=== PATIENT | female | born 1940 | race Hispanic/Latino ===

== ENCOUNTER 2016-12-23 15:49 | Observation (INO) | payer BC ==
[2016-12-23 15:55] VITALS: BMI 33.0
[2016-12-23] MEDS ORDERED: Aspirin 325 mg EC Tablets PO STA (16:13)
--- NOTE | 2016-12-23 16:18 | ED PDOC ---
Arrival/HPI - General Chief Complaint: Palpitations Time Seen by Provider: 12/23/16 16:13 Historian: Patient - History of Present Illness Time/Duration: Prior to Arrival Symptom Onset: Sudden Associated Symptoms (Text): 12/23/16 16:15 Patient reports that she went to see for routine follow-up. While she was there she complained of intermittent palpitations. He did an EKG and found her to be in new onset rapid atrial fibrillation and directed her to the emergency department. She denies any chest pain. No dyspnea. No dizziness or lightheadedness. No diaphoresis. No fever or chills. Patient also complains of chronic right sided lower abdominal pelvic and hip pain for over one year. She has had MRI of the abdomen and MRI of the pelvis and MRI of the hip which are unrevealing. She complains that last week she felt something protruding from her vagina. On exam she has an easily reduced prolapsed uterus. Past Medical History - Infectious Disease Hx of Infectious Diseases: None - Reproductive Menopause: Yes - Cardiac Hx Pacemaker: No - Pulmonary Hx Asthma: Yes - Neurological Hx Paralysis: No - HEENT Hx HEENT Disorder: Yes Hx Cataracts: Yes - Renal Hx Renal Disorder: No - Endocrine/Metabolic Hx Endocrine Disorders: No - Hematological/Oncological Hx Blood Transfusions: No Hx Blood Transfusion Reaction: No - Integumentary Hx Dermatological Disorder: Yes Hx Cellulitis: Yes - Musculoskeletal/Rheumatological Hx Musculoskeletal Disorders: Yes - Gastrointestinal Hx Gastrointestinal Disorders: No - Genitourinary/Gynecological Hx Genitourinary Disorders: No - Psychiatric Hx Emotional Abuse: No Hx Physical Abuse: No Hx Substance Use: No - Surgical History Hx Cardiac Catheterization: Yes (stent) - Anesthesia Hx Anesthesia Reactions: No Hx Malignant Hyperthermia: No - Suicidal Assessment Feels Threatened In Home Enviroment: No Family/Social History - Physician Review Nursing Documentation Reviewed: Yes Family/Social History: Unknown Family HX Smoking Status: Former Smoker (Quit smoking 25 years ago) Hx Alcohol Use: No Hx Substance Use: No Allergies/Home Meds Allergies/Adverse Reactions: Allergies No Known Allergies Allergy (Verified 12/25/14 12:23) Home Medications: Home Meds Medication Instructions Recorded Confirmed Albuterol HFA [Ventolin HFA 90 2 puff IH PRN PRN 12/25/14 12/23/16 mcg/actuation (8 g)] Amlodipine/Valsartan [Exforge 1 tab PO DAILY 12/25/14 12/23/16 5-320 mg Tablet] Budesonide/Formoterol Fumarate 1 aer IH BID 12/25/14 12/23/16 [Symbicort 160-4.5 Mcg Inhaler] Aspirin [Aspirin EC] 325 mg PO DAILY 01/29/16 12/23/16 Atorvastatin [Lipitor] 40 mg PO DAILY 01/29/16 12/23/16 Carvedilol [Coreg] 6.25 mg PO BID 01/29/16 12/23/16 Clopidogrel [Plavix] 75 mg PO DAILY 01/29/16 12/23/16 Isosorbide Mononitrate ER [Imdur 30 mg PO DAILY 01/29/16 12/23/16 ER] Review of Systems - Physician Review All systems were reviewed & negative as marked: Yes - Review of Systems Constitutional: Normal Respiratory: SOB (Chronic shortness of breath no different from usual) Cardiovascular: Normal Gastrointestinal: Normal, Abdominal Pain. absent: Constipation, Diarrhea, Nausea, Vomiting Genitourinary Female: absent: Dysuria, Frequency, Hematuria, Vaginal Bleeding, Vaginal Discharge Neurological: absent: Headache, Dizziness Physical Exam Vital Signs Temp Pulse Resp BP Pulse Ox 12/23/16 17:14 80 20 114/54 L 94 L 12/23/16 16:07 97.7 F 83 16 132/70 94 L Temperature: Afebrile Blood Pressure: Normal Pulse: Regular Respiratory Rate: Normal Appearance: Positive for: Well-Appearing, Non-Toxic, Comfortable Pain Distress: None Mental Status: Positive for: Alert and Oriented X 3 - Systems Exam Head: Present: Atraumatic, Normocephalic Pupils: Present: PERRL Extroacular Muscles: Present: EOMI Conjunctiva: Present: Normal Mouth: Present: Moist Mucous Membranes Pharnyx: No: ERYTHEMA, EXUDATE, TONSILS ENLARGED Neck: Present: Normal Range of Motion. No: MIDLINE TENDERNESS, Paraspinal Tenderness Respiratory/Chest: Present: Clear to Auscultation, Good Air Exchange, Decreased Breath Sounds. No: Respiratory Distress, Accessory Muscle Use Cardiovascular: Present: Regular Rate and Rhythm, Normal S1, S2. No: Murmurs Abdomen: Present: Normal Bowel Sounds. No: Tenderness, Distention, Peritoneal Signs, Rebound, Guarding Genitourinary/Pelvic Exam: Present: Normal External Genitalia, Other (Easily reduced prolapsed uterus). No: Vaginal Discharge, Vaginal Bleeding, Vaginal Lesions Back: Present: Normal Inspection. No: CVA Tenderness, Midline Tenderness, Paraspinal Tenderness Upper Extremity: Present: Normal Inspection. No: Cyanosis, Edema Lower Extremity: Present: Normal Inspection. No: Edema Neurological: Present: GCS=15, CN II-XII Intact, Speech Normal, Motor Func Grossly Intact Skin: Present: Warm, Dry, Normal Color. No: Rashes Psychiatric: Present: Alert, Oriented x 3, Normal Insight, Normal Concentration Medical Decision Making ED Course and Treatment: 12/23/16 16:18 EKG shows normal sinus rhythm rate approximately [address] or T-wave changes 12/23/16 17:24 Discussed with Ozzy Pineda. - Lab Interpretations Lab Results: 12/23/16 16:15 12/23/16 16:15 Lab Results 12/23/16 16:15: Sodium 144, Potassium 4.0, Chloride 107, Carbon Dioxide 24, Anion Gap 17, BUN 21, Creatinine 0.8, Est GFR ( Amer) > 60, Est GFR (Non- Af Amer) > 60, Random Glucose 161 H, Calcium 9.0, Total Bilirubin 0.5, AST 39 H , ALT 37, Alkaline Phosphatase 147 H, Lactate Dehydrogenase 1119 H, Total Creatine Kinase 67, Troponin I < 0.01, NT-Pro-B Natriuret Pep 1040 H, Total Protein 7.4, Albumin 4.2, Globulin 3.2, Albumin/Globulin Ratio 1.3 12/23/16 16:15: PT 10.8, INR 1.00, APTT 28.7 12/23/16 16:15: WBC 7.5, RBC 4.57, Hgb 13.4, Hct 40.5, MCV 88.6, MCH 29.3, MCHC 33.1, RDW 14.0, Plt Count 261, MPV 10.8, Gran % 68.4 H, Lymph % (Auto) 24.8, [place] % (Auto) 5.2, Eos % (Auto) 1.3 L, Baso % (Auto) 0.3, Gran # 5.15, Lymph # 1.9, [place] # 0.4, Eos # 0.1, Baso # 0.02 - RAD Interpretation Radiology Orders: 12/23/16 16:14 CHEST PORTABLE [RAD] Stat Chest 1 view shows no infiltrate effusion or cardiomegaly Enterprise Manager: ED Physician - Medication Orders Current Medication Orders: Amlodipine Besylate (Norvasc) 10 mg PO DAILY THUY Aspirin (Ecotrin) 325 mg PO DAILY THUY Atorvastatin Calcium (Lipitor) 40 mg PO DAILY THUY Carvedilol (Coreg) 6.25 mg PO BID THUY Clopidogrel Bisulfate (Plavix) 75 mg PO DAILY THUY Isosorbide Mononitrate (Imdur Er) 30 mg PO HS THUY Non-Formulary Medication (Budesonide/Formoterol Fumarate [Symbicort 160-4.5 Mcg Inhaler]) 1 aer IH BID THUY Discontinued Medications Aspirin (Ecotrin) 325 mg PO STAT STA Stop: 12/23/16 16:14 Last Admin: 12/23/16 16:25 Dose: 325 mg Disposition/Present on Arrival - Present on Arrival Any Indicators Present on Arrival: No History of DVT/PE: No History of Uncontrolled Diabetes: No Urinary Catheter: No History of Decub. Ulcer: No History Surgical Site Infection Following: None - Disposition Have Diagnosis and Disposition been Completed?: Yes Diagnosis: Paroxysmal atrial fibrillation, Prolapsed uterus, Elevated brain natriuretic peptide (BNP) level, Hyperglycemia Disposition: HOME/ ROUTINE Disposition Time: 17:05 Patient Plan: Observation, Telemetry Patient Problems: Current Active Problems Problem Status Onset Elevated brain natriuretic peptide (BNP) level Acute Hyperglycemia Acute Paroxysmal atrial fibrillation Acute Prolapsed uterus Acute Condition: STABLE
[2016-12-23 16:32] LABS: BASO # 0.02 K/mm3 (0.0-2.0); BASO % 0.3 % (0.0-3.0); EOS # 0.1 (0.0-0.7); EOS % 1.3 % (1.5-5.0); GRAN # 5.15 (1.4-6.5); GRAN % 68.4 % (50.0-68.0); HEMATOCRIT 40.5 % (36.0-48.0); LYMPH # 1.9 (1.2-3.4); LYMPH % 24.8 % (22.0-35.0); MEAN CELL VOLUME 88.6 fl (80.0-105.0); MEAN CORPUSCULAR HEMOGLOBIN 29.3 pg (25.0-35.0); MEAN CORPUSCULAR HGB CONC 33.1 g/dl (31.0-37.0); MEAN PLATELET VOLUME 10.8 fl (7.0-11.0); MONO # 0.4 (0.1-0.6); MONO % 5.2 % (1.0-6.0); WHITE BLOOD COUNT 7.5 10^3/ul (4.5-11.0)
[2016-12-23 16:38] LABS: ALB/GLOB RATIO 1.3 (1.1-1.8); ALKALINE PHOSPHATASE 147 U/L (38-126); ALT/SGPT 37 U/L (7-56); AST/SGOT 39 U/L (14-36); BILIRUBIN,TOTAL 0.5 mg/dL (0.2-1.3); BLOOD UREA NITROGEN 21 mg/dL (7-21); CARBON DIOXIDE 24 mmol/L (21-33); CHLORIDE 107 mmol/L (98-107); GFR AFRICAN-AMERICAN > 60; GLUCOSE,RANDOM 161 mg/dL (70-110); SODIUM 144 mmol/L (132-148); TOTAL PROTEIN 7.4 g/dL (5.8-8.3)
[2016-12-23 16:45] LABS: PARTIAL THROMBOPLASTIN TIME 28.7 Seconds (23.7-30.8)
[2016-12-23 16:50] LABS: TROPONIN I < 0.01 ng/mL
--- NOTE | 2016-12-23 17:00 | RAD ---
HISTORY: palp COMPARISON: 12/25/2014 FINDINGS: LUNGS: No active pulmonary disease. PLEURA: No significant pleural effusion identified, no pneumothorax apparent. CARDIOVASCULAR: Normal. OSSEOUS STRUCTURES: No significant abnormalities. VISUALIZED UPPER ABDOMEN: Normal. OTHER FINDINGS: None. IMPRESSION: No active disease.
[2016-12-23] MEDS ORDERED: Non Formulary Medication (Budesonide/Formoterol Fumarate [Symbicort 160-4.5 Mcg Inhaler] 1 IH SCH (18:00)
[2016-12-23] MEDS ORDERED: Pneumococcal 23-Valent Vaccine IM ONE (23:22)
[2016-12-24 06:16] VITALS: RESP 20; O2SAT 95
[2016-12-24] MEDS ORDERED: Aspirin 325 mg EC Tablets PO SCH (10:00)
[2016-12-24] MEDS ORDERED: Home Med - SYMBICORT 160/4.5 MCG IH SCH (10:00)
--- NOTE | 2016-12-24 11:42 | CARD ---
APPROVED REPORT EKG Measurement Heart [id number] <Conclusion> Normal sinus rhythm Possible Left atrial enlargement Left ventricular hypertrophy Abnormal ECG
[2016-12-24 11:45] VITALS: BP 133/63; TEMP 98.1
--- NOTE | 2016-12-24 13:43 | CP.PCM.CON ---
History of Present Illness - History of Present Illness History of Present Illness: .72-year-old female admitted to hospital due to atrial fibrillation. Upon admission, incidental finding of pelvic organ prolapse. Patient reports noticing this in the past. Patient reports having occasional pelvic pressure and discomfort, but otherwise without complaints. Patient denies any incontinence, urinary retention, vaginal discharge, vaginal bleeding, difficulty with bowel movements, diarrhea or constipation. Past Patient History - Infectious Disease Hx of Infectious Diseases: None - Past Social History Smoking Status: Former Smoker - CARDIAC Hx Cardiac Disorders: Yes (CAD) Hx Cardia Arrhythmia: Yes (NEW ONSET RAPID AFIB 12-23-16) Hx Pacemaker: No - PULMONARY Hx Respiratory Disorders: Yes (SMOKED CIGARETTES) Hx Asthma: Yes Hx Chronic Obstructive Pulmonary Disease (COPD): Yes Hx Pneumonia: Yes - NEUROLOGICAL Hx Neurological Disorder: Yes Hx Transient Ischemic Attacks (TIA): Yes Other/Comment: bells palsy - HEENT Hx HEENT Problems: Yes Hx Cataracts: Yes (WITH SX) - RENAL Hx Chronic Kidney Disease: No - ENDOCRINE/METABOLIC Hx Endocrine Disorders: No - HEMATOLOGICAL/ONCOLOGICAL Hx Blood Disorders: No - INTEGUMENTARY Hx Dermatological Problems: Yes - MUSCULOSKELETAL/RHEUMATOLOGICAL Hx Musculoskeletal Disorders: Yes (PLANTAR FASCITIS) Hx Falls: No - GASTROINTESTINAL Hx Gastrointestinal Disorders: Yes Hx Gall Bladder Disease: Yes (CHOLECYSTECTOMY) - GENITOURINARY/GYNECOLOGICAL Hx Genitourinary Disorders: Yes (PROLAPSED UTERUS 12-23-16) - PSYCHIATRIC Hx Psychophysiologic Disorder: No Hx Emotional Abuse: No Hx Physical Abuse: No Hx Substance Use: No - SURGICAL HISTORY Hx Surgeries: Yes (L LUMPECTOMY,HEART STENTS X 2,BILATERAL CATARACT SURGERY) Hx Cardiac Catheterization: Yes (stentX2) Hx Cholecystectomy: Yes - ANESTHESIA Hx Anesthesia Reactions: No Hx Malignant Hyperthermia: No Meds Allergies/Adverse Reactions: Allergies Allergy/AdvReac Type Severity Reaction Status Date / Time No Known Allergies Allergy Verified 12/23/16 20:50 - Medications Medications: Current Medications Acetaminophen (Tylenol 325mg Tab) 650 mg PO Q6 PRN PRN Reason: Pain, moderate (4-7) Last Admin: 12/24/16 01:04 Dose: 650 mg Amlodipine Besylate (Norvasc) 10 mg PO DAILY [facility] Last Admin: 12/24/16 09:57 Dose: 10 mg Aspirin (Ecotrin) 325 mg PO DAILY [facility] Last Admin: 12/24/16 09:57 Dose: 325 mg Atorvastatin Calcium (Lipitor) 40 mg PO DAILY [facility] Last Admin: 12/24/16 09:57 Dose: 40 mg Clopidogrel Bisulfate (Plavix) 75 mg PO DAILY [facility] Last Admin: 12/24/16 09:57 Dose: 75 mg Home Med (Home Med) 2 unit IH BID [facility] Last Admin: 12/24/16 09:57 Dose: 2 unit Isosorbide Mononitrate (Imdur Er) 30 mg PO HS [facility] Last Admin: 12/23/16 21:27 Dose: 30 mg Physical Exam - Constitutional Appears: Well, No Acute Distress - Head Exam Head Exam: ATRAUMATIC - Eye Exam Eye Exam: Normal appearance, PERRL - ENT Exam ENT Exam: Mucous Membranes Moist - Neck Exam Neck exam: Positive for: Normal Inspection - GI/Abdominal Exam GI & Abdominal Exam: Soft. absent: Distended, Tenderness - Exam Additional comments: Patient declined full pelvic exam today. Patient requests to have full pelvic exam and evaluation when she sees me in my office in 2 days. Results - Vital Signs Recent Vital Signs: Last Vital Signs Temp 98.1 F 12/24/16 11:44 Pulse 70 12/24/16 11:44 Resp 20 12/24/16 11:44 BP 133/63 12/24/16 11:44 Pulse Ox 95 12/24/16 06:00 - Labs Result Diagrams: 12/23/16 16:15 12/23/16 16:15 Assessment & Plan - Assessment and Plan (Free Text) Assessment: Pelvic organ prolapse. Plan: I discussed with patient information regarding pelvic organ prolapse. I discussed with patient possible symptoms as well as possible sequelae. I discussed with patient all options of treatment including expectant management, management with pessary, and definitive management with surgery. After discussion of options, patient is leaning towards surgery but will consider options. Patient is having pelvic ultrasound done today and is scheduled for discharge from hospital today. I gave patient my contact information, and patient will follow-up with me in the office in 2 days. All patient questions answered. - Date & Time Date: 12/24/16 Time: 13:48
[2016-12-24 14:46] VITALS: PULSE 77
--- NOTE | 2016-12-24 16:49 | US ---
HISTORY: pelvic pain, r/o prolapse uterus COMPARISON: None available. TECHNIQUE: Pelvic ultrasound is performed using transabdominal and transvaginal technique. FINDINGS: UTERUS: Measures 8.2 x 3.0 x 4.5 cm. Uterus is anteverted. Normal in size and appearance. No fibroid or other mass lesion seen, however, peripheral vascular calcifications are identified in the myometrium. . ENDOMETRIUM: Measures 5.0 mm in diameter. Unremarkable. CERVIX: No cervical abnormality identified. RIGHT OVARY: Measures 2.2 x 1.3 x 1.8 cm. No solid mass. Normal flow. LEFT OVARY: Measures 2.3 x 2.0 x 1.1 cm. No solid mass. Normal flow. FREE FLUID: No significant free fluid noted. OTHER FINDINGS: None. IMPRESSION: Unremarkable pelvic ultrasound.
--- NOTE | 2016-12-24 19:52 | CON ---
DATE: 12/24/2016 LOCATION: The patient is in room 262, bed 1. REASON FOR CONSULTATION: Palpitation, new onset of atrial fibrillation, coronary artery disease, history of angioplasty, hypertension, and pelvic pain. HISTORY OF PRESENT ILLNESS: The patient is a 76-year-old female known case of coronary artery disease, had RCA stent put in on 01/04/2015, then she had abnormal stress test on 01/10/2016 for which she had gaps and had LAD stent put in on 01/31/2016. The patient complained of palpitation and the EKG done in the office showed new onset of atrial fibrillation. The patient also complaining from last few days pelvic area pain and she thinks from vagina, there is protrusion outside and she has lot of pain in the inguinal and pelvic area. The patient denies any chest pain or shortness of breath. The patient is known to have hypertension and COPD. PAST MEDICAL HISTORY: Positive for coronary artery disease, status post RCA stent on 01/04/2015, abnormal stress test 01/10/2016. 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 PERSONAL HISTORY: The patient used to smoke [id number] pack a day, but stopped 25 years ago. Denies drinking. ALLERGIES: THE PATIENT DENIES ANY ALLERGIES. MEDICATIONS: The patient's home medication included aspirin 325 daily, Lipitor 40 daily, Coreg 6.25 b.i.d., Plavix 75 mg p.o. daily, isosorbide mononitrate 30 p.o. daily, Ventolin inhaler, and Exforge 5/320 mg daily. REVIEW OF SYSTEMS: All the systems are reviewed. Positive mentioned in the history, others are negative. PHYSICAL EXAMINATION: VITAL SIGNS: Blood pressure 133/63, respiratory rate 20, pulse 70, and temperature is 98.1. HEENT: Head is normocephalic. Eyes: Pupils are normal. Conjunctivae normal. Nose and throat normal. NECK: JVP low. Carotids are equal. THORAX: AP diameter normal. LUNGS: Clear. CARDIOVASCULAR: S1 and S2. ABDOMEN: Soft. No tenderness in the pelvic area and suprapubic area. EXTREMITIES: No clubbing. No cyanosis. LABORATORY DATA: EKG yesterday in the office showed atrial fibrillation, new onset. The patient went to the emergency room and EKG done here showed sinus rhythm. Chest x-ray, no active pulmonary disease. WBC 7.5, hemoglobin 13.4, hematocrit 40.5, and platelet 261. Sodium 144, potassium 4.0, BUN 21, creatinine 0.8, random glucose 161, AST 39, ALT 37. Troponin less than 0.01, LDH 1119, NT pro-B natriuretic peptide 1040. DIAGNOSES: New onset atrial fibrillation, which converted to sinus rhythm; coronary artery disease status post angioplasty of right coronary artery on 01/04/2015 and angioplasty and stent insertion of left anterior descending 01/31/2016; hypertension; hyperlipidemia; obesity; chronic obstructive pulmonary disease; prolapsed uterus, which was reduced in emergency room; pelvic area and inguinal area pain, probably related to prolapse of the uterus. PLAN: The patient is getting carvedilol 6.25 b.i.d., aspirin 325 daily, atorvastatin 40 daily, isosorbide mononitrate 30 daily, amlodipine 10 daily, Plavix 75 daily. Since the patient went into atrial fibrillation while was on carvedilol 6.25 b.i.d., we will increase the carvedilol dose to 12.5 b.i.d. and we will follow closely. Anuel Preciado MD
--- NOTE | 2016-12-25 01:19 | HP ---
HISTORY OF PRESENT ILLNESS: This is a 76-year-old female who was sent by Dr. Preciado's office because of atrial fibrillation, new onset. The patient was found to have EKG that showed atrial fibrillation which was new. She also has been complaining of a prolapsed uterus. She is waiting to see her LEAD INSTRUCTOR/FLIGHT ATTENDANT. The patient was sent to the ER and was found to be in sinus rhythm. She was admitted as an observation to see if she has any arrhythmias. She was not started on any medication for her rate control and her rate was tachy-sinus rhythm. She has a history of having arthritic complaints. She does continue to work. The patient has no complaints of any chest pain, no shortness of breath, no nausea, no vomiting, no hematochezia, no headache or chills. She does have dysuria at times. No fevers. No abdominal pain. She does feel fullness in her pelvic area. REVIEW OF SYSTEMS: All other review of symptoms are within normal limits except as mentioned. ALLERGIES: NO KNOWN DRUG ALLERGIES. HOME MEDICATIONS: Her home medications have been reviewed. PAST MEDICAL HISTORY: 1. Coronary artery disease with stenting of RCA in 12/2014. 2. COPD. 3. Hypertension. PAST SURGICAL HISTORY: 1. Cholecystectomy. 2. Lumpectomy secondary to carcinoma in situ of breast. SOCIAL HISTORY: She smoked 1-1/2-pack a day, but quit about 25 years ago. She denies alcohol or drugs. FAMILY HISTORY: Noncontributory. PHYSICAL EXAMINATION: VITAL SIGNS: Temperature is 98, pulse of 76, blood pressure 144/62, respirations 18, O2 saturation 96%. Height is 5 feet 7 inches, weight is 206 pounds, BMI is 33. GENERAL: The patient lying in bed, uncomfortable, and in no acute distress. HEENT: Atraumatic and normocephalic. Anicteric sclerae. Moist mucosa. Rainbow conjunctivae. No oral lesions. NECK: No JVD, anterior and posterior adenopathy, thyromegaly, or bruits. CARDIOVASCULAR: S1 and S2 regular. No murmur, rubs, or gallop. LUNGS: Clear to auscultation bilaterally. No wheezes, rales, or rhonchi. ABDOMEN: Bowel sounds are positive. Soft, nontender and nondistended. No hepatosplenomegaly. No rebound and no guarding. EXTREMITIES: No cyanosis, clubbing, or edema. NEUROLOGIC: No facial asymmetry. Tongue is midline. No uvula deviation. Power is 5/5 upper extremity and lower extremity. Sensation intact in upper extremity and lower extremity. PSYCHIATRIC: She is awake, alert and oriented x3. No anxiety or depression. She has normal affect. GENITOURINARY: No CVA tenderness. VASCULAR: 2+ pulses in the carotid pulses and pedal pulses. SKIN: No erythema or nodules SPINE: Shows normal curvature. EXTREMITIES: No Cyanosis and clubbing, no edema. LABORATORY DATA: White count 7.5, hemiglobin 13.4. Sodium is 144, potassium 4.0. AST and ALT are 39 and 37. Troponin is 0.01. ProBNP is 140. The pelvic and vaginal ultrasound have been reviewed by me and they were negative. Chest x-ray done shows no infiltrates. EKG done shows normal sinus rhythm with LVH. QTc is 458. ASSESSMENT: 1. Atrial fibrillation, now in sinus rhythm. 2. Hypertension. 3. Coronary artery disease. 4. Dyslipidemia. 5. Chronic obstructive pulmonary disease. 6. Uterine prolapse. PLAN: The patient was admitted to the hospital, remained in sinus rhythm throughout the night. She was seen by Dr. Preciado. I did speak to Dr. Austin regarding the case. She also is seen by LEAD INSTRUCTOR/FLIGHT ATTENDANT, and she is going to follow up as an outpatient for her uterine prolapse. The patient is going to continue Lipitor for dyslipidemia. She is going to continue her aspirin for coronary disease. She is on isosorbide and carvedilol for her coronary disease as well. She is on Plavix daily for her coronary artery disease. Her blood pressure has been maintained on her blood pressure medications. She is going to be discharged home. CONDITION: Stable. ACTIVITIES: Increase as tolerated. Kurt Nevarez MD
== END 2016-12-24 17:21 | disposition home or self-care (01) ==
LOC: ED 15:49 → ERH 17:07 → 2RNO 22:22
PROVIDERS: ADMIT Internal Medicine Nephrology; ATTEND Internal Medicine Nephrology
DX: I48.0 Paroxysmal atrial fibrillation (principal); N81.4 Uterovaginal prolapse, unspecified; R73.9 Hyperglycemia, unspecified; E78.5 Hyperlipidemia, unspecified; I10 Essential (primary) hypertension; I25.10 Atherosclerotic heart disease of native coronary artery without angina pectoris; J44.9 Chronic obstructive pulmonary disease, unspecified; Z79.02 Long term (current) use of antithrombotics/antiplatelets; Z79.51 Long term (current) use of inhaled steroids; Z79.82 Long term (current) use of aspirin; Z79.899 Other long term (current) drug therapy; Z85.3 Personal history of malignant neoplasm of breast; Z86.73 Personal history of transient ischemic attack (TIA), and cerebral infarction without residual deficits; Z87.01 Personal history of pneumonia (recurrent); Z87.891 Personal history of nicotine dependence; Z90.49 Acquired absence of other specified parts of digestive tract; Z95.5 Presence of coronary angioplasty implant and graft; R40.2412 Glasgow coma scale score 13-15, at arrival to emergency department; R30.0 Dysuria; G51.0 Bell's palsy; M72.2 Plantar fascial fibromatosis; Z98.42 Cataract extraction status, left eye; Z98.41 Cataract extraction status, right eye; E66.9 Obesity, unspecified; Z68.32 Body mass index [BMI] 32.0-32.9, adult
CPT/HCPCS: 71010; 76830; 76856; 80053; 82550; 83615; 83880; 84484; 85025; 85610; 85730; 93005; 99284; G0378

== ENCOUNTER 2018-02-04 09:25 | Day surgery (SDC) | payer MEDICARE ==
[2018-01-27 09:09] VITALS: BMI 31.9
[2018-02-04] MEDS ORDERED: Midazolam 2 MG/2 ML VIAL ONE (11:54)
[2018-02-04] MEDS ORDERED: Flumazenil 0.1 mg/ml Inj (5ml) IVP ONE (11:55)
[2018-02-04] MEDS ORDERED: Naloxone 0.4 mg/ml Inj (Adult) ONE (11:55)
[2018-02-04] MEDS ORDERED: Midazolam 2 MG/2 ML VIAL IV ONE ×3 (11:58→12:10)
[2018-02-04] MEDS ORDERED: Sodium Chloride 0.9% 1,000 ML IV SCH (12:45)
[2018-02-04 15:32] VITALS: BP 126/53; PULSE 70; RESP 18; TEMP 97.4; O2SAT 95
--- NOTE | 2018-02-04 18:45 | CARD ---
APPROVED REPORT Date of service: 02/04/2018 EXAM: Transesophageal echocardiogram with color flow Doppler. INDICATION Mitral Valve Disease 2D DIMENSIONS Left Atrium (2D)6.0 (1.6-4.0cm) M-Mode DIMENSIONS Aortic Cusp Exc.1.30 (1.5-2.0cm) Aortic Valve AoV Peak Pfwduhhb979.0cm/Jeremy Peak GR.15mmHgLVOT Peak Dtfmspad05.3cm/s LVOT VTI16.40cm Mitral Valve E/A ratio0.0 TDI E/Lateral E'0.0E/Medial E'0.0 Reason For Test : To Eval MR/ PROCEDURE After obtaining informed consent, patient underwent transesophageal echo in the Echo Lab. Type of Sedation : Conscious Sedation Sedation was administered by Dr. juan. Sedation was achieved with Versed and fentanyl 3mg and 100 mcg intravenously. Transesophageal probe was inserted and advanced into esophagus without difficulty. Echo enhancement indication: R/O Septal defect. Echo enhancement agent administered: Agitated Saline The RUFINO was performed without complications. Throughout the procedure, the blood pressure, pulse oximetry, cardiac rhythm, and rate were monitored. The patient tolerated the procedure without adverse effects. Recovery from conscious sedation was uneventful and vital signs were stable. LEFT VENTRICLE The left ventricle is normal size. There is mild concentric left ventricular hypertrophy. The left ventricular function is normal.EF-55-60% There is normal LV segmental wall motion. The left ventricular diastolic function is normal. No left ventricle thrombus noted on this study. There is no ventricular septal defect visualized. There is no left ventricular aneurysm. There is no mass noted in the left ventricle. RIGHT VENTRICLE The right ventricle is normal size. There is normal right ventricular wall thickness. The right ventricular systolic function is normal. ATRIA The left atrium is Moderately dilated. The right atrium size is normal. The interatrial septum is intact with no evidence for an atrial septal defect. AORTIC VALVE The aortic valve is calcified and displays decreased opening. There is trace to mild aortic regurgitation. There is moderate valvular aortic stenosis. There is no aortic valvular vegetation. MITRAL VALVE The mitral valve leaflets are thickened. There is prolapse of the anterior mitral leaflet. There is no mitral valve stenosis. The mitral regurgitant jet is posteriorly directed, which is consistent with anterior leaflet pathology. Mitral regurgitation is severe. TRICUSPID VALVE The tricuspid valve leaflets display thickening. There is trace tricuspid regurgitation. There is no tricuspid valve prolapse or vegetation. There is no tricuspid valve stenosis. PULMONIC VALVE The pulmonary valve is normal in structure. There is trace pulmonic valvular regurgitation. There is no pulmonic valvular stenosis. GREAT VESSELS The aortic root is normal in size. The ascending aorta is normal in size. The pulmonary artery is normal. The IVC is normal in size and collapses >50% with inspiration. PERICARDIAL EFFUSION There is no pericardial effusion. There is no pleural effusion. <Conclusion> The left ventricle is normal size. There is mild concentric left ventricular hypertrophy. The left ventricular function is normal.EF-55-60% There is trace to mild aortic regurgitation. There is moderate valvular aortic stenosis. There is prolapse of the anterior mitral leaflet. The mitral regurgitant jet is posteriorly directed, which is consistent with anterior leaflet pathology. Mitral regurgitation is severe. There is trace tricuspid regurgitation. There is trace pulmonic valvular regurgitation. Moderate Plaque in descending aorta Veloctiy in PHILL >0.4 m/s
== END 2018-02-04 14:30 | disposition home or self-care (01) ==
LOC: TEE 09:25 → CARDIO 09:25 → EDSTATUS 11:00 → TEE 14:30
PROVIDERS: ATTEND Internal Medicine Cardiovascular Disease
DX: I34.0 Nonrheumatic mitral (valve) insufficiency (principal); I10 Essential (primary) hypertension; I25.10 Atherosclerotic heart disease of native coronary artery without angina pectoris
CPT/HCPCS: 93312; J2250; J3010; J7030

== ENCOUNTER 2018-03-19 17:37 | Inpatient (IN) | payer MEDICARE ==
[2018-03-19 17:50] VITALS: BMI 32.9
--- NOTE | 2018-03-19 17:52 | ED PDOC ---
Arrival/HPI - General Time Seen by Provider: 03/19/18 17:42 Historian: Patient, Family (daughter) - History of Present Illness Narrative History of Present Illness (Text): A 77 year old female, whose past medical history includes emphysema, hypertension, hyperlipidemia, COPD, Asthma, 2 stents, breast cancer, mitral valve surgery, and a hysterectomy, presents to the emergency department complaining of shortness of breath since earlier today. SOB x1 week however total. Patient reports pain feels similar to chronic pain from hysterectomy. Patient states she has taken a breathing treatment prior to arrival to the ER and she has not taken any emphysema medication due to insurance issues. Patient denies any fever, chills, chest pain, diarrhea, nausea, vomiting, urinary symptoms, back pain, neck pain, headache, dizziness, or any other complaints. PMD: Dr. Melendez 03/19/18 20:14 Time/Duration: Other (earlier today) Symptom Onset: Gradual Symptom Course: Unchanged Activities at Onset: Light Context: Home Past Medical History - Provider Review Nursing Documentation Reviewed: Yes - Infectious Disease Hx of Infectious Diseases: None - Cardiac Hx Pacemaker: No - Pulmonary Hx Respiratory Disorders: Yes Hx Asthma: Yes Hx Bronchitis: Yes Hx Chronic Obstructive Pulmonary Disease (COPD): Yes Hx Pneumonia: Yes - Neurological Hx Paralysis: No - HEENT Hx HEENT Disorder: Yes Hx Cataracts: Yes - Renal Hx Renal Disorder: No - Endocrine/Metabolic Hx Endocrine Disorders: No - Hematological/Oncological Hx Blood Transfusions: No Hx Blood Transfusion Reaction: No - Integumentary Hx Dermatological Disorder: No Hx Cellulitis: Yes - Musculoskeletal/Rheumatological Hx Musculoskeletal Disorders: Yes - Gastrointestinal Hx Gastrointestinal Disorders: No Hx Gall Bladder Disease: Yes (CHOLECYSTECTOMY) - Genitourinary/Gynecological Hx Genitourinary Disorders: No - Psychiatric Hx Emotional Abuse: No Hx Physical Abuse: No Hx Substance Use: No - Surgical History Hx Angioplasty: Yes Hx Cataract Extraction: Yes (O.U) Hx Cardiac Catheterization: Yes Hx Cholecystectomy: Yes Hx Coronary Stent: Yes Other/Comment: LUMPECTOMY LEFT BREAST - Anesthesia Hx Anesthesia Reactions: No Hx Malignant Hyperthermia: No - Suicidal Assessment Feels Threatened In Home Enviroment: No Family/Social History - Physician Review Nursing Documentation Reviewed: Yes Family/Social History: No Known Family HX Smoking Status: Former Smoker Hx Alcohol Use: No Hx Substance Use: No Allergies/Home Meds Allergies/Adverse Reactions: Allergies No Known Allergies Allergy (Verified 12/23/16 20:50) Home Medications: Home Meds Medication Instructions Recorded Confirmed Albuterol HFA [Ventolin HFA 90 2 puff IH PRN PRN 12/25/14 02/04/18 mcg/actuation (8 g)] Aspirin [Aspirin EC] 325 mg PO DAILY 01/29/16 02/04/18 Atorvastatin [Lipitor] 40 mg PO DAILY 01/29/16 02/04/18 Carvedilol [Coreg] 6.25 mg PO BID 01/29/16 02/04/18 Clopidogrel [Plavix] 75 mg PO DAILY 01/29/16 02/04/18 Isosorbide Mononitrate ER [Imdur 30 mg PO DAILY 01/29/16 02/04/18 ER] Ezetimibe [Zetia] 10 mg PO DAILY 01/30/17 02/04/18 Fluticasone/Umeclidin/Vilanter 1 puff IH DAILY 01/27/18 02/04/18 [Trelegy Ellipta 100-62.5-25] Valsartan 320 mg PO DAILY 01/27/18 02/04/18 amLODIPine [Norvasc] 5 mg PO DAILY 01/27/18 02/04/18 Review of Systems - Physician Review All systems were reviewed & negative as marked: Yes - Review of Systems Constitutional: absent: Fatigue, Fevers, Night Sweats Eyes: absent: Vision Changes ENT: absent: Hearing Changes, Tinnitus Respiratory: SOB Cardiovascular: absent: Chest Pain, Palpitations Gastrointestinal: absent: Stool Changes, Constipation, Diarrhea, Nausea, Vomiting, Appetite Changes, Hematochezia, Hematemesis, Food Intolerance Genitourinary Female: absent: Dysuria, Frequency, Hematuria, Urine Output Changes, Vaginal Bleeding, Vaginal Discharge Musculoskeletal: absent: Arthralgias, Back Pain, Neck Pain Skin: absent: Rash, Pruritis Neurological: absent: Headache, Dizziness, Focal Weakness Physical Exam Vital Signs Reviewed: Yes Temperature: Afebrile Blood Pressure: Hypotensive Pulse: Tachycardic Respiratory Rate: Normal Appearance: Positive for: Well-Appearing, Non-Toxic Mental Status: Positive for: Alert and Oriented X 3 - Systems Exam Head: Present: Atraumatic, Normocephalic Pupils: Present: PERRL Extroacular Muscles: Present: EOMI Conjunctiva: Present: Normal Ears: Present: Normal Mouth: Present: Moist Mucous Membranes Pharnyx: Present: Normal. No: ERYTHEMA, EXUDATE Neck: Present: Normal Range of Motion. No: Meningeal Signs Respiratory/Chest: Present: Wheezes (+mild wheezing bilaterally at bases) Cardiovascular: Present: Regular Rate and Rhythm, Normal S1, S2. No: Murmurs Abdomen: Present: Normal Bowel Sounds. No: Tenderness, Distention, Peritoneal Signs Back: Present: Normal Inspection Upper Extremity: Present: Normal Inspection. No: Cyanosis, Edema Lower Extremity: Present: Normal Inspection. No: Edema Neurological: Present: GCS=15, CN II-XII Intact, Speech Normal Skin: Present: Warm, Dry, Normal Color. No: Rashes Psychiatric: Present: Alert, Oriented x 3, Normal Insight, Normal Concentration Medical Decision Making ED Course and Treatment: 03/19/18 17:54 Impression: 77 year old female presenting to the emergency room for shortness of breath. Shortness of x1 week, worsened, RIOS. No leg swelling however, but hx of breast CA rx in the past. No CP, but pt notes chronic abd pain after she had her hysterectomy. No vaginal d/c. No rashes. No urinary complaints. On exam abd non-ttp. Mild wheezes on exam. On plavix, however given recent TTE, for ?CHF vs Emphysema, Breast CA hx will seek dimer. Plan: -- EKG -- Labs -- CBC -- Chest X-ray -- Urinalysis -- Reassess and disposition Prior Visits: Notes and results from previous visits were reviewed. Progress Notes: 03/19/18 17:55 EKG: Ordered, reviewed, and independently interpreted the EKG. Rate : 108 BPM Rhythm : Sinus tachycardia Interpretation : No stemi. 03/19/18 20:04 dimer elevated - CT ordered BNP elevated - Lasix ordered febrile, w/ out meningeal signs or urinary complaints or vaginal d/c or rash. Tylenol ordered. Broad spectrum abx ordered pt agreeable to plan for admission Appreciate consult w/ Dr. Zavaleta: to admit to hospitalist service. 03/19/18 20:08 PNA on xr: pending lactic no admission w/ in 90 days or NH stays: Will rx w/ rocephin and bautista Pt in NAD - Scribe Statement The provider has reviewed the documentation as recorded by the Jeremías Savage All medical record entries made by the Carleenibarun were at my direction and personally dictated by me. I have reviewed the chart and agree that the record accurately reflects my personal performance of the history, physical exam, medical decision making, and the department course for this patient. I have also personally directed, reviewed, and agree with the discharge instructions and disposition. Disposition/Present on Arrival - Present on Arrival Any Indicators Present on Arrival: No History of DVT/PE: No History of Uncontrolled Diabetes: No Urinary Catheter: No History Surgical Site Infection Following: None - Disposition Have Diagnosis and Disposition been Completed?: Yes Diagnosis: Pneumonia, COPD (chronic obstructive pulmonary disease) Disposition Time: 20:10 Patient Problems: Current Active Problems Problem Status Onset Pneumonia Acute COPD (chronic obstructive pulmonary disease) Acute Condition: GOOD
[2018-03-19] MEDS ORDERED: Albuterol-Ipratrop 3 mg / 0.5 (3 ml) UD IH STA (17:54)
[2018-03-19 18:14] LABS: BASO # 0.02 K/mm3 (0.0-2.0); BASO % 0.1 % (0.0-3.0); EOS % 0.3 % (1.5-5.0); GRAN # 13.41 (1.4-6.5); GRAN % 88.4 % (50.0-68.0); LYMPH # 0.9 (1.2-3.4); LYMPH % 5.6 % (22.0-35.0); MEAN CELL VOLUME 90.9 fl (80.0-105.0); MEAN CORPUSCULAR HEMOGLOBIN 29.5 pg (25.0-35.0); MEAN CORPUSCULAR HGB CONC 32.4 g/dl (31.0-37.0); MEAN PLATELET VOLUME 11.2 fl (7.0-11.0); MONO # 0.9 (0.1-0.6); MONO % 5.6 % (1.0-6.0); RBC 4.41 10^6/uL (3.5-6.1); RED CELL DISTRIBUTION WIDTH 13.9 % (11.5-14.5); WHITE BLOOD COUNT 15.2 10^3/uL (4.5-11.0)
[2018-03-19 18:31] LABS: ALBUMIN 4.2 g/dL (3.0-4.8); ALT/SGPT 28 U/L (7-56); AST/SGOT 43 U/L (14-36); BLOOD UREA NITROGEN 20 mg/dL (7-21); CALCIUM 9.2 mg/dL (8.4-10.5); GFR NON-AFRICAN AMERICAN > 60; LIPASE 106 U/L (23-300)
[2018-03-19 18:42] LABS: B-TYPE NATRIURETIC PEPTIDE 1430 pg/mL (0-450); TROPONIN I < 0.01 ng/mL
[2018-03-19] MEDS ORDERED: Iohexol 350 MG/100 ML VIAL ONE (19:20)
[2018-03-19] MEDS ORDERED: metroNIDAZOLE IV 500 mg/100 ml 500 MG/100 ML BAG IVPB STA (19:58)
[2018-03-19 20:08] LABS: VENOUS BLOOD GAS BASE EXCESS -2.1 mmol/L (0.0-2.0); VENOUS BLOOD GAS PO2 70 mm/Hg (30-55); VENOUS BLOOD PH 7.44 (7.32-7.43)
[2018-03-19] MEDS ORDERED: cefTRIAXone 1 gm 1 GM/100 ML BAG IVPB STA (20:11)
[2018-03-19] MEDS ORDERED: Azithromycin 500MG/NS 250ml 500 MG/250 ML BAG IVPB STA (20:11)
--- NOTE | 2018-03-19 21:09 | CP.PCM.HP ---
<EvansPhilip - Last Filed: 03/20/18 04:49> History of Present Illness - History of Present Illness History of Present Illness: Philip Krueger DO, PGY1. H&P for hospitalist service 77 y/o female with PMH of HTN, CAD (s/p PCI with 2 stents palced), left breast CA (s/p lumpectomy and RT) emphysema, chronic lower pain presents to the ED 5 days h/o SOB at rest and on exersion, fever, chills, chest congestion and dry cough. Her symptoms are getting worse even with the use of her inhalers. She also has complaints of lower back pain which is chronic and takes 6 tablets of ASA 325 mg daily. Her pain is worse today specially on the left side with right side with radiculopathy and is sharp in nature, radiates to below the knee level. Patient received steroid injections in the past with no relieve of her pain. Patient denied CP, palpitations, PND, orthopnia, N/V/D, dizziness, muscle weakness, symptoms. Patient denied recent travel or sick contacts. She had h/o previous hospitalization due to pneumonia 12 pointS ROS reviewed with pertinent positive as above PMH: as above PSH: L lumpectomy, cholecystectomy Meds: norvasc, valsartan, imdur, carvidolol, plavix, asa 325, lipitor, zetia, ventolin ALL: NKDA SocH: former smoker, denied alcohol, drug use FH: non contributory Cardio: Dr Austin Present on Admission - Present on Admission Any Indicators Present on Admission: No Past Patient History - Infectious Disease Hx of Infectious Diseases: None - Past Medical History & Family History Past Medical History?: Yes - Past Social History Smoking Status: Former Smoker - CARDIAC Hx Pacemaker: No - PULMONARY Hx Respiratory Disorders: Yes Hx Asthma: Yes Hx Bronchitis: Yes Hx Chronic Obstructive Pulmonary Disease (COPD): Yes Hx Pneumonia: Yes - NEUROLOGICAL Hx Paralysis: No - HEENT Hx HEENT Problems: Yes Hx Cataracts: Yes - RENAL Hx Chronic Kidney Disease: No - ENDOCRINE/METABOLIC Hx Endocrine Disorders: No - HEMATOLOGICAL/ONCOLOGICAL Hx Blood Transfusions: No Hx Blood Transfusion Reaction: No - INTEGUMENTARY Hx Dermatological Problems: No Hx Cellulitis: Yes - MUSCULOSKELETAL/RHEUMATOLOGICAL Hx Musculoskeletal Disorders: Yes - GASTROINTESTINAL Hx Gastrointestinal Disorders: No Hx Gall Bladder Disease: Yes (CHOLECYSTECTOMY) - GENITOURINARY/GYNECOLOGICAL Hx Genitourinary Disorders: No - PSYCHIATRIC Hx Emotional Abuse: No Hx Physical Abuse: No Hx Substance Use: No - SURGICAL HISTORY Hx Angioplasty: Yes Hx Cataract Extraction: Yes (O.U) Hx Cardiac Catheterization: Yes Hx Cholecystectomy: Yes Hx Coronary Stent: Yes Other/Comment: LUMPECTOMY LEFT BREAST - ANESTHESIA Hx Anesthesia Reactions: No Hx Malignant Hyperthermia: No Meds Allergies/Adverse Reactions: Allergies Allergy/AdvReac Type Severity Reaction Status Date / Time No Known Allergies Allergy Verified 12/23/16 20:50 Physical Exam - Constitutional Appears: Well, No Acute Distress - Head Exam Head Exam: ATRAUMATIC, NORMAL INSPECTION, NORMOCEPHALIC - Eye Exam Eye Exam: EOMI, Normal appearance, PERRL Pupil Exam: NORMAL ACCOMODATION, PERRL - ENT Exam ENT Exam: Mucous Membranes Dry - Neck Exam Neck exam: Positive for: Normal Inspection - Respiratory Exam Respiratory Exam: Decreased Breath Sounds, Rhonchi (mid, lower right lung ), Wheezes (b/l lung bases), Respiratory Distress - Cardiovascular Exam Cardiovascular Exam: Tachycardia, Diastolic murmur, +S1, +S2. absent: JVD - GI/Abdominal Exam GI & Abdominal Exam: Normal Bowel Sounds, Soft. absent: Tenderness - Back Exam Back exam: NORMAL INSPECTION - Neurological Exam Neurological exam: Alert, CN II-XII Intact, Normal Gait, Oriented x3, Reflexes Normal - Psychiatric Exam Psychiatric exam: Normal Affect, Normal Mood Results - Vital Signs Recent Vital Signs: Last Vital Signs Temp 100.4 F H 03/19/18 19:52 Pulse 104 H 03/19/18 19:52 Resp 22 03/19/18 19:52 BP 149/54 L 03/19/18 20:20 Pulse Ox 90 L 03/19/18 19:52 - Labs Result Diagrams: 03/19/18 18:00 03/19/18 18:00 Labs: Laboratory Results - last 24 hr 03/19/18 03/19/18 03/19/18 18:00 18:00 18:00 WBC 15.2 H RBC 4.41 Hgb 13.0 Hct 40.1 MCV 90.9 MCH 29.5 MCHC 32.4 RDW 13.9 Plt Count 243 MPV 11.2 H Gran % 88.4 H Lymph % (Auto) 5.6 L Henry % (Auto) 5.6 Eos % (Auto) 0.3 L Baso % (Auto) 0.1 Gran # 13.41 H Lymph # (Auto) 0.9 L Henry # (Auto) 0.9 H Eos # (Auto) 0.0 Baso # (Auto) 0.02 D-Dimer, Quantitative 397 H pO2 VBG pH VBG pCO2 VBG HCO3 VBG Total CO2 VBG O2 Sat (Calc) VBG Base Excess VBG Potassium Glucose Lactate FiO2 Sodium 138 Potassium 4.4 Chloride 104 Carbon Dioxide 24 Anion Gap 15 BUN 20 Creatinine 0.9 Est GFR ( Amer) > 60 Est GFR (Non-Af Amer) > 60 Random Glucose 94 Calcium 9.2 Magnesium 1.9 Total Bilirubin 0.8 AST 43 H ALT 28 Alkaline Phosphatase 180 H D Troponin I < 0.01 NT-Pro-B Natriuret Pep 1430 H Total Protein 8.6 H Albumin 4.2 Globulin 4.3 Albumin/Globulin Ratio 1.0 L Lipase 106 Venous Blood Potassium 03/19/18 19:55 WBC RBC Hgb Hct MCV MCH MCHC RDW Plt Count MPV Gran % Lymph % (Auto) Henry % (Auto) Eos % (Auto) Baso % (Auto) Gran # Lymph # (Auto) Henry # (Auto) Eos # (Auto) Baso # (Auto) D-Dimer, Quantitative pO2 70 H VBG pH 7.44 H VBG pCO2 31.0 L VBG HCO3 21.1 VBG Total CO2 22.1 VBG O2 Sat (Calc) 96.4 H VBG Base Excess -2.1 L VBG Potassium 3.9 Glucose 103 Lactate 1.2 FiO2 21.0 Sodium 134.0 Potassium Chloride 102.0 Carbon Dioxide Anion Gap BUN Creatinine Est GFR ( Amer) Est GFR (Non-Af Amer) Random Glucose Calcium Magnesium Total Bilirubin AST ALT Alkaline Phosphatase Troponin I NT-Pro-B Natriuret Pep Total Protein Albumin Globulin Albumin/Globulin Ratio Lipase Venous Blood Potassium 3.9 Assessment & Plan - Assessment and Plan (Free Text) Assessment: 77 y/o female with PMH of HTN, CAD (s/p PCI with 2 stents palced), left breast CA (s/p lumpectomy and RT) emphysema, chronic lower pain presents to the ED 5 days h/o SOB at rest and on exersion. . She was found to have leukocytosis, CT chest shows RML consolidation Plan: Shortness of breath: - associated with fever, chills, cough. Likely due to CAP in the setting of pre-existing emphysema -trop negative x1. serial x2 -EKG: sinus tachy @108. LAD, no ST/T wave abnormalities -CXR: right lung consolidations, pul venous congestion -CT chest: shows RML consolidation -CTA chest ordered -leukocytosis, febrile -continue rocephin, zithromycin, solu-medrol, duoneb -supp O2 prn -f/u flu a/b, procal -f/u cx of blood, urine, sputum -continue tylenol prn for fever HTN/CAD s/p PCI: -continue home meds norvasc, valsartan, imdur -continue plavix, asa -RUFINO (02/14): EF 55-60%, LVH, , MVP, MR, TR, CO -cardiology consulted Dr Austin HLD: -continue home meds lipitor, zetia chronic lower back pain: -disc heriation with b/l radiaculopathy, more to the right below knee level -percocet prn for pain h/o left breast CA s/p lumpectomy/radiation: -not on active therapy h/o emphysema: -continue home meds ventolin Prophylaxis: -GI ppx: protonix -DVT ppx: SCD, lovenox Heart healthy diet Case reviewed and plan discussed with attending Dr Waqar Krueger, DO, PGY1 <Dina Zavaleta - Last Filed: 03/22/18 14:25> Results - Vital Signs Recent Vital Signs: Last Vital Signs Temp 97.5 F L 03/22/18 06:00 Pulse 80 03/22/18 14:00 Resp 20 03/22/18 06:00 BP 130/63 03/22/18 12:16 Pulse Ox 93 L 03/22/18 06:00 - Labs Result Diagrams: 03/22/18 07:10 03/22/18 07:10 Labs: Laboratory Results - last 24 hr 03/22/18 03/22/18 07:10 07:10 WBC 20.5 H RBC 3.85 Hgb 11.1 L Hct 35.7 L MCV 92.7 MCH 28.8 MCHC 31.1 RDW 14.1 Plt Count 253 MPV 11.9 H Gran % 92.4 H Lymph % (Auto) 4.0 L Henry % (Auto) 3.6 Eos % (Auto) 0.0 L Baso % (Auto) 0.0 Gran # 18.90 H Lymph # (Auto) 0.8 L Henry # (Auto) 0.7 H Eos # (Auto) 0.0 Baso # (Auto) 0.01 Sodium 137 Potassium 4.7 Chloride 107 Carbon Dioxide 25 Anion Gap 10 BUN 42 H Creatinine 1.0 Est GFR ( Amer) > 60 Est GFR (Non-Af Amer) 54 Random Glucose 128 H Calcium 8.6 Total Bilirubin 0.3 AST 56 H D ALT 51 Alkaline Phosphatase 128 H Total Protein 7.6 Albumin 3.8 Globulin 3.8 Albumin/Globulin Ratio 1.0 L Attending/Attestation - Attestation I have personally seen and examined this patient.: Yes I have fully participated in the care of the patient.: Yes I have reviewed all pertinent clinical information: Yes
[2018-03-19] MEDS ORDERED: Oxycodone/Acetaminophen 5/325 mg Tab PO STA (21:16)
[2018-03-19] MEDS ORDERED: Levalbuterol 0.63 MG/3 ML Inhal Soln UD IH PRN (21:22)
[2018-03-19 21:31] LABS: URINE APPEARANCE CLEAR (CLEAR); URINE BILIRUBIN NEGATIVE (NEGATIVE); URINE BLOOD NEGATIVE (NEGATIVE); URINE COLOR LIGHT YELLOW (YELLOW); URINE GLUCOSE (UA) NEGATIVE (NEGATIVE); URINE LEUKOCYTE ESTERASE SMALL Leu/uL (NEGATIVE); URINE PROTEIN NEGATIVE mg/dL (<30 mg/dL); URINE UROBILINOGEN 0.2 E.U./dL (<1 E.U./dL)
[2018-03-19 21:36] LABS: URINE BACTERIA NEG /hpf; URINE RBC NEGATIVE /hpf (0-2)
[2018-03-19] MEDS: MethylPREDNISolone 40 mg Vial IVP SCH (21:36)
[2018-03-19 22:18] LABS: HDL CHOLESTEROL 46 mg/dL (29-60)
[2018-03-19 22:28] LABS: TROPONIN I < 0.01 ng/mL
[2018-03-19 22:29] LABS: LDL CHOLESTEROL 69 mg/dL (0-129)
[2018-03-20] MEDS: Oxycodone/Acetaminophen 5/325 mg Tab PO PRN ×4 (01:43→21:20)
[2018-03-20] MEDS: MethylPREDNISolone 40 mg Vial IVP SCH ×3 (03:06→21:12)
[2018-03-20] MEDS: Arformoterol 15 mcg/2 ml Inh Sol IH SCH ×2 (08:28→20:09)
[2018-03-20] MEDS: Budesonide 0.25 mg/2 ml Inhal Susp UD IH SCH ×2 (08:29→20:10)
[2018-03-20 09:10] LABS: BASO # 0.01 K/mm3 (0.0-2.0); GRAN # 22.91 (1.4-6.5); GRAN % 92.8 % (50.0-68.0); HEMOGLOBIN 12.8 g/dL (12.0-16.0); MEAN CELL VOLUME 91.7 fl (80.0-105.0); MEAN CORPUSCULAR HEMOGLOBIN 29.5 pg (25.0-35.0); MEAN CORPUSCULAR HGB CONC 32.2 g/dl (31.0-37.0); MEAN PLATELET VOLUME 11.7 fl (7.0-11.0); MONO # 0.8 (0.1-0.6); MONO % 3.2 % (1.0-6.0); PLATELET COUNT 246 10^3/uL (120.0-450.0); RBC 4.34 10^6/uL (3.5-6.1); WHITE BLOOD COUNT 24.7 10^3/uL (4.5-11.0)
--- NOTE | 2018-03-20 09:13 | CARD ---
APPROVED REPORT Date of service: 03/19/2018 EKG Measurement Heart [id number] <Conclusion> Sinus tachycardia Septal NC, old No change
[2018-03-20 09:22] LABS: ALBUMIN 4.2 g/dL (3.0-4.8); ALT/SGPT 30 U/L (7-56); AST/SGOT 28 U/L (14-36); BLOOD UREA NITROGEN 22 mg/dL (7-21); CALCIUM 9.1 mg/dL (8.4-10.5); GFR NON-AFRICAN AMERICAN > 60
[2018-03-20] MEDS: Aspirin 325 mg EC Tablets PO SCH (09:30)
[2018-03-20] MEDS: cefTRIAXone 1 gm 1 GM/100 ML BAG IVPB SCH (09:31)
[2018-03-20] MEDS: Azithromycin 500MG/NS 250ml 500 MG/250 ML BAG IVPB SCH (09:32)
[2018-03-20] MEDS: Enoxaparin 40 mg Syringe SC SCH (09:33)
[2018-03-20] MEDS: Pantoprazole 40 mg EC Tab PO SCH (09:33)
--- NOTE | 2018-03-20 09:36 | CT ---
Date of service: 03/19/2018 PROCEDURE: CT Chest with contrast (Pulmonary Angiogram) HISTORY: dimer elevated, sob, on plavix COMPARISON: 03/01/2018 CT thorax 12/25/2014 CT pulmonary angiogram. TECHNIQUE: Axial computed tomography images were obtained of the chest in the pulmonary arterial phase of enhancement. Coronal and sagittal reformatted images were created and reviewed. Intravenous contrast dose: 100 cc Omnipaque 300. Mean Hounsfield value in the main pulmonary artery: 234.38 Radiation dose: Total exam DLP = <inf_radiation_dlp> mGy-cm. This CT exam was performed using one or more of the following dose reduction techniques: Automated exposure control, adjustment of the mA and/or kV according to patient size, and/or use of iterative reconstruction technique. FINDINGS: PULMONARY ARTERIES: Unremarkable. No pulmonary embolism. AORTA: No acute findings. No thoracic aortic aneurysm. No atherosclerotic calcification or mural plaque present. LUNGS: New infiltrate posterior segment right upper lobe. Additional infiltrate/atelectasis noted in the right lower lobe also a new finding compared to the prior CT. PLEURAL SPACES: Unremarkable. No effusion or pneumothorax. HEART: Unremarkable. No cardiomegaly. No significant pericardial effusion. LYMPH NODES: Enlarged mediastinal and hilar lymph nodes similar to that seen on the prior CT 03/01/2018. The largest azygos lymph node measures 1.8 x 2.3 cm. BONES, CHEST WALL: Unremarkable. No fracture or destructive lesion OTHER FINDINGS: Unremarkable. IMPRESSION: Large, extensive acute infiltrate right upper lobe. Small right lower lobe infiltrate. Stable mediastinal/right hilar adenopathy. Concordant results (preliminary interpretation) provided by [employer]. Procedure Completed: 19:27. Preliminary Report: Dictated and Authenticated: 19:50. Final Interpretation: 09:33.
[2018-03-20] MEDS ORDERED: cefTRIAXone 1 gm 1 GM/100 ML BAG IVPB SCH (10:00)
[2018-03-20 10:28] LABS: BAND 8 % (0-2); LYMPHOCYTE 3 % (22.0-35.0); METAMYELOCYTE 2 %; MONOCYTE 5 % (1.0-6.0); NEUTROPHIL 82 % (50.0-70.0)
--- NOTE | 2018-03-20 11:06 | RAD ---
Date of service: 03/19/2018 HISTORY: Shortness of breath. COMPARISON: March [address] angiogram. 01/20/2018. TECHNIQUE: Chest PA and lateral FINDINGS: LUNGS: Right upper lobe infiltrate consistent with acute pneumonia. Atelectasis/infiltrate right lower lobe PLEURA: No significant pleural effusion identified. No pneumothorax apparent. CARDIOVASCULAR: Atherosclerotic calcifications identified primarily aortic arch. . Normal cardiac size. No pulmonary vascular congestion. OSSEOUS STRUCTURES: No significant abnormalities. VISUALIZED UPPER ABDOMEN: Normal. OTHER FINDINGS: None. IMPRESSION: New/acute primarily right upper lobe infiltrate likely acute pneumonia.
--- NOTE | 2018-03-20 11:14 | CP.PCM.PN ---
<Maryellen Quan - Last Filed: 03/20/18 11:22> Subjective - Date & Time of Evaluation Date of Evaluation: 03/20/18 Time of Evaluation: 11:05 - Subjective Subjective: Maryellen Quan DO, PGY-2: Hospitalist Service Dr. Day Patient was seen and examined at bedside. Patient complained of right infrascapular pain that is worsened with deep inspiration. We discussed the utility of a lidoderm patch. Patient reports feeling better since admission. She denied chest pain, orthopnea, paroxysmal dyspnea, or a lower extremity edema. No adverse events were noted overnight. Objective - Vital Signs/Intake and Output Vital Signs (last 24 hours): Temp Pulse Resp BP Pulse Ox 97.5 F L 86 20 124/64 94 L 03/20/18 06:00 03/20/18 09:30 03/20/18 06:00 03/20/18 09:31 03/20/18 06:00 Intake and Output: 03/20/18 03/20/18 06:59 18:59 Intake Total 300 Output Total 500 Balance -200 - Medications Medications: Current Medications Acetaminophen (Tylenol 325mg Tab) 650 mg PO Q6H PRN PRN Reason: Fever >100.4 F Albuterol/Ipratropium (Duoneb 3 Mg/0.5 Mg (3 Ml) Ud) 3 ml IH [id number] PRN PRN Reason: Shortness of Breath Amlodipine Besylate (Norvasc) 5 mg PO DAILY REPLACED BY [facility] Last Admin: 03/20/18 09:30 Dose: 5 mg Arformoterol Tartrate (Brovana) 15 mcg IH [id number] REPLACED BY [facility] Last Admin: 03/20/18 08:28 Dose: 15 mcg Aspirin (Ecotrin) 325 mg PO DAILY REPLACED BY [facility] Last Admin: 03/20/18 09:30 Dose: 325 mg Atorvastatin Calcium (Lipitor) 40 mg PO DAILY REPLACED BY [facility] Last Admin: 03/20/18 09:30 Dose: 40 mg Budesonide (Pulmicort Respules) 0.25 mg IH [id number] REPLACED BY [facility] Last Admin: 03/20/18 08:29 Dose: 0.25 mg Carvedilol (Coreg) 6.25 mg PO BID REPLACED BY [facility] Last Admin: 03/20/18 09:30 Dose: 6.25 mg Ezetimibe (Zetia) 10 mg PO DAILY REPLACED BY [facility] Last Admin: 03/20/18 09:31 Dose: 10 mg Enoxaparin Sodium (Lovenox) 40 mg SC DAILY REPLACED BY [facility]; Protocol Last Admin: 03/20/18 09:33 Dose: 40 mg Furosemide (Lasix) 20 mg IVP Q12 REPLACED BY [facility] Last Admin: 03/20/18 09:31 Dose: 20 mg Ceftriaxone Sodium (Rocephin 1 Gram Ivpb) 1 gm in 100 mls @ 100 mls/hr IVPB DAILY REPLACED BY [facility]; Protocol Last Admin: 03/20/18 09:31 Dose: 100 mls/hr Azithromycin (Zithromax 500mg In Ns) 500 mg in 250 mls @ 167 mls/hr IVPB DAILY REPLACED BY [facility]; Protocol Last Admin: 03/20/18 09:32 Dose: 167 mls/hr Isosorbide Mononitrate (Imdur Er) 30 mg PO DAILY REPLACED BY [facility] Last Admin: 03/20/18 09:30 Dose: 30 mg Levalbuterol HCl (Xopenex) 0.63 mg IH [id number] PRN PRN Reason: Shortness of Breath Lidocaine (Lidoderm) 1 ea TD DAILY REPLACED BY [facility] Methylprednisolone (Solu-Medrol) 20 mg IVP Q12H REPLACED BY [facility] Oxycodone/Acetaminophen (Percocet 5/325 Mg Tab) 1 tab PO Q6H PRN PRN Reason: Pain, severe (8-10) Stop: 03/22/18 21:17 Last Admin: 03/20/18 09:30 Dose: 1 tab Pantoprazole Sodium (Protonix Inj) 40 mg IVP DAILY REPLACED BY [facility] Last Admin: 03/20/18 09:31 Dose: 40 mg Pantoprazole Sodium (Protonix Ec Tab) 40 mg PO 0600 REPLACED BY [facility] Last Admin: 03/20/18 09:33 Dose: Not Given Valsartan (Diovan) 320 mg PO DAILY REPLACED BY [facility] Last Admin: 03/20/18 10:43 Dose: 320 mg - Labs Labs: 03/20/18 07:00 03/20/18 07:00 - Constitutional Appears: Well, Non-toxic, No Acute Distress - Head Exam Head Exam: ATRAUMATIC, NORMOCEPHALIC - Eye Exam Eye Exam: EOMI, Normal appearance, PERRL. absent: Scleral icterus - ENT Exam ENT Exam: Mucous Membranes Moist, Normal Oropharynx - Neck Exam Neck Exam: Normal Inspection. absent: Lymphadenopathy, Thyromegaly - Respiratory Exam Respiratory Exam: Decreased Breath Sounds (right mid lung field posteriorly), NORMAL BREATHING PATTERN. absent: Rales, Rhonchi, Wheezes - Cardiovascular Exam Cardiovascular Exam: RRR, +S1, +S2. absent: Clicks, Murmur - GI/Abdominal Exam GI & Abdominal Exam: Soft, Normal Bowel Sounds - Extremities Exam Extremities Exam: Normal Inspection. absent: Calf Tenderness, Pedal Edema - Back Exam Back Exam: NORMAL INSPECTION. absent: CVA tenderness (L), CVA tenderness (R) - Neurological Exam Neurological Exam: Alert, Awake, Oriented x3 - Psychiatric Exam Psychiatric exam: Normal Affect, Normal Mood - Skin Skin Exam: Dry, Intact, Normal Color, Warm Assessment and Plan - Assessment and Plan (Free Text) Assessment: 77 y/o female with PMH of HTN, CAD (s/p PCI with 2 stents palced), left breast CA (s/p lumpectomy and RT) emphysema, chronic lower pain presents to the ED 5 days h/o SOB at rest and on exertion. . She was found to have leukocytosis, CT chest shows RML consolidation Plan: Community Acquired Pneumonia -trop negative x1. serial x2 -EKG: sinus tachy @108. LAD, no ST/T wave abnormalities -CXR: right lung consolidations, pul venous congestion -CTA chest: shows RML consolidation with no evidence of Pulmonary embolism -leukocytosis, febrile -continue rocephin and azithromycin, - solu-medrol 20 mg q12h - duoneb q4h PRN for shortness of breath -supp O2 prn -influenzae swab negative, procalcitonin pending -f/u cx of blood, urine, sputum -continue tylenol prn for fever HTN/CAD s/p PCI: -continue home meds norvasc, valsartan, imdur -continue plavix, asa -RUFINO (02/14): EF 55-60%, LVH, , MVP, MR, [place], [place] -cardiology consulted Dr Austin HLD: -continue home meds lipitor, zetia chronic lower back pain: -disc heriation with b/l radiaculopathy, more to the right below knee level -percocet prn for pain h/o left breast CA s/p lumpectomy/radiation: -not on active therapy h/o emphysema: -continue home meds ventolin Right chest wall pain likely secondary to pleurisy from RML consolidation - Lidoderm patch daily Prophylaxis: -GI ppx: protonix -DVT ppx: SCD, lovenox Heart healthy diet Case reviewed and plan discussed with attending Dr. Day <Paxton Day - Last Filed: 03/20/18 16:32> Objective - Vital Signs/Intake and Output Vital Signs (last 24 hours): Temp Pulse Resp BP Pulse Ox 98.1 F 85 18 114/57 L 94 L 03/20/18 12:00 03/20/18 14:00 03/20/18 12:00 03/20/18 12:00 03/20/18 06:00 Intake and Output: 03/20/18 03/20/18 06:59 18:59 Intake Total 300 Output Total 500 Balance -200 - Medications Medications: Current Medications Acetaminophen (Tylenol 325mg Tab) 650 mg PO Q6H PRN PRN Reason: Fever >100.4 F Albuterol/Ipratropium (Duoneb 3 Mg/0.5 Mg (3 Ml) Ud) 3 ml IH [id number] PRN PRN Reason: Shortness of Breath Amlodipine Besylate (Norvasc) 5 mg PO DAILY REPLACED BY [facility] Last Admin: 03/20/18 09:30 Dose: 5 mg Arformoterol Tartrate (Brovana) 15 mcg IH [id number] REPLACED BY [facility] Last Admin: 03/20/18 08:28 Dose: 15 mcg Aspirin (Ecotrin) 325 mg PO DAILY REPLACED BY [facility] Last Admin: 03/20/18 09:30 Dose: 325 mg Atorvastatin Calcium (Lipitor) 40 mg PO DAILY REPLACED BY [facility] Last Admin: 03/20/18 09:30 Dose: 40 mg Budesonide (Pulmicort Respules) 0.25 mg IH [id number] REPLACED BY [facility] Last Admin: 03/20/18 08:29 Dose: 0.25 mg Carvedilol (Coreg) 6.25 mg PO BID REPLACED BY [facility] Last Admin: 03/20/18 09:30 Dose: 6.25 mg Ezetimibe (Zetia) 10 mg PO DAILY REPLACED BY [facility] Last Admin: 03/20/18 09:31 Dose: 10 mg Enoxaparin Sodium (Lovenox) 40 mg SC DAILY REPLACED BY [facility]; Protocol Last Admin: 03/20/18 09:33 Dose: 40 mg Furosemide (Lasix) 20 mg IVP Q12 [facility] Last Admin: 03/20/18 09:31 Dose: 20 mg Ceftriaxone Sodium (Rocephin 1 Gram Ivpb) 1 gm in 100 mls @ 100 mls/hr IVPB DAILY [facility]; Protocol Last Admin: 03/20/18 09:31 Dose: 100 mls/hr Azithromycin (Zithromax 500mg In Ns) 500 mg in 250 mls @ 167 mls/hr IVPB DAILY [facility]; Protocol Last Admin: 03/20/18 09:32 Dose: 167 mls/hr Isosorbide Mononitrate (Imdur Er) 30 mg PO DAILY [facility] Last Admin: 03/20/18 09:30 Dose: 30 mg Lidocaine (Lidoderm) 1 ea TD DAILY [facility] Last Admin: 03/20/18 12:51 Dose: 1 ea Methylprednisolone (Solu-Medrol) 20 mg IVP Q12H [facility] Oxycodone/Acetaminophen (Percocet 5/325 Mg Tab) 1 tab PO Q6H PRN PRN Reason: Pain, severe (8-10) Stop: 03/22/18 21:17 Last Admin: 03/20/18 15:17 Dose: 1 tab Pantoprazole Sodium (Protonix Inj) 40 mg IVP DAILY REPLACED BY [facility] Last Admin: 03/20/18 09:31 Dose: 40 mg Pantoprazole Sodium (Protonix Ec Tab) 40 mg PO 0600 [facility] Last Admin: 03/20/18 09:33 Dose: Not Given Valsartan (Diovan) 320 mg PO DAILY REPLACED BY [facility] Last Admin: 03/20/18 10:43 Dose: 320 mg - Labs Labs: 03/20/18 07:00 03/20/18 07:00 Attending/Attestation - Attestation I have personally seen and examined this patient.: Yes I have fully participated in the care of the patient.: Yes I have reviewed all pertinent clinical information, including history, physical exam and plan: Yes Notes (Text): 03/20/18 16:29 77 year old female with past medical history of CAD s/p stents, hypertension, left breast cancer s/p lumpectomy and radiation, emphysema and chronic back pain who presented with cough and shortness of breath. She was found to have RML consolidation on CT chest and started on iv antibiotics. She is on duonebs and iv steroids which we will taper. She is on iv lasix as well. Cardiology evaluation was appreciated. Paxton Day MD Hospitalist
[2018-03-20] MEDS ORDERED: MethylPREDNISolone 40 mg Vial IVP SCH (11:15)
[2018-03-20] MEDS: Lidocaine 5% Patch TD SCH (12:51)
--- NOTE | 2018-03-20 15:01 | CON ---
DATE: 03/20/2018 REASON FOR CONSULTATION: Shortness of breath and coronary artery disease. HISTORY OF PRESENT ILLNESS: The patient is 77 years old female, who is a former smoker, has history of chronic obstructive lung disease, on nasal O2 at home, has a history of hypertension, coronary artery disease with coronary stenting more than once in the past, most recent time was 2 years ago. The patient presents because of shortness of breath. The patient denies any productive cough, fever or chills. The patient denies any hemoptysis. The patient last time took the pneumonia vaccine was 9 years ago. SOCIAL HISTORY: The patient is a former heavy smoker. MEDICATIONS: Brovana 50 mcg inhalation every 12 hours, Coreg 6.25 mg twice a day, Diovan 320 mg once a day, aspirin 325 mg once a day, Lasix 20 mg intravenously twice a day, Imdur 30 mg once a day, Lipitor 40 mg once a day, Lovenox 40 mg subcutaneous once a day, Norvasc 5 mg once a day, Protonix 40 mg intravenous once a day, Rocephin 1 g intravenously daily, Solu-Medrol 20 mg intravenously every 12 hours, Zetia 10 mg daily, Zithromax 500 mg intravenously. PAST MEDICAL HISTORY: Chronic obstructive lung disease; coronary artery disease, status post coronary stenting twice in the past. PHYSICAL EXAMINATION: GENERAL: The patient is an elderly female, who does not appear to be in acute distress. VITAL SIGNS: Blood pressure 101/51, heart rate 77, temperature 97.5, respirations 20. HEENT: Normocephalic. CHEST: Bilateral rhonchi. HEART: S1 and S2 regular. ABDOMEN: Soft. EXTREMITIES: Trace leg edema. IMAGING STUDIES: Chest x-ray revealed a COPD picture with consolidation involving the right middle lobe. LABORATORY DATA: Hemoglobin and hematocrit are 12.8 and 39.8, white count 24.7, and platelet count 246,000. Today's SMA-7, sodium 136, potassium 3.7, chloride 104, CO2 of 21, glucose 166, BUN 22, creatinine 0.9. Three sets of troponins are negative. ProBNP is 1430. D-dimer is 397. Influenza type A and B serology is negative. CT angio revealed large extensive acute infiltrate right upper lobe, small right lower lobe infiltrate, no pulmonary embolus. 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 Recent RUFINO this past January revealed normal ejection fraction, mild concentric LVH, moderate valvular aortic stenosis, severe mitral insufficiency. ASSESSMENT: 1. Right upper lobe pneumonia. 2. Severe mitral insufficiency. 3. Chronic obstructive lung disease. 4. Moderate valvular aortic stenosis. RECOMMENDATIONS: Continue Coreg 6.25 mg once a day, Diovan 320 mg once a day, albuterol inhaler, aspirin 325 mg once a day, Imdur 30 mg once a day, Lasix 20 mg intravenous twice a day, Lipitor 40 g once a day, Lovenox 40 mg subcutaneously once a day, Protonix 40 mg intravenously once a day, Rocephin 1 g intravenously daily, Solu-Medrol 20 mg intravenous every 12 hours, Zetia 10 mg once a day, Zithromax 500 intravenously daily. Obtain two sets of blood cultures as well as sputum Gram-stain and culture. Mathew Peck MD
[2018-03-21] MEDS: Oxycodone/Acetaminophen 5/325 mg Tab PO PRN ×3 (02:52→21:35)
[2018-03-21] MEDS: Pantoprazole 40 mg EC Tab PO SCH (05:46)
[2018-03-21 06:52] LABS: GRAN # 19.99 (1.4-6.5); GRAN % 91.4 % (50.0-68.0); HEMOGLOBIN 10.9 g/dL (12.0-16.0); LYMPH # 0.9 (1.2-3.4); LYMPH % 4.3 % (22.0-35.0); MEAN CELL VOLUME 92.5 fl (80.0-105.0); MEAN CORPUSCULAR HEMOGLOBIN 29.1 pg (25.0-35.0); MEAN CORPUSCULAR HGB CONC 31.5 g/dl (31.0-37.0); MEAN PLATELET VOLUME 12.1 fl (7.0-11.0); MONO # 0.9 (0.1-0.6); MONO % 4.3 % (1.0-6.0); RBC 3.74 10^6/uL (3.5-6.1); RED CELL DISTRIBUTION WIDTH 14.1 % (11.5-14.5); WHITE BLOOD COUNT 21.9 10^3/uL (4.5-11.0)
[2018-03-21 06:55] LABS: ALBUMIN 3.6 g/dL (3.0-4.8); CALCIUM 8.6 mg/dL (8.4-10.5)
[2018-03-21] MEDS: Budesonide 0.25 mg/2 ml Inhal Susp UD IH SCH ×2 (07:43→20:09)
[2018-03-21] MEDS: Arformoterol 15 mcg/2 ml Inh Sol IH SCH ×2 (07:43→20:08)
[2018-03-21] MEDS: Enoxaparin 40 mg Syringe SC SCH (09:34)
[2018-03-21] MEDS: Aspirin 325 mg EC Tablets PO SCH (09:36)
[2018-03-21] MEDS: Azithromycin 500MG/NS 250ml 500 MG/250 ML BAG IVPB SCH (09:37)
[2018-03-21] MEDS: cefTRIAXone 1 gm 1 GM/100 ML BAG IVPB SCH (09:37)
[2018-03-21] MEDS: Lidocaine 5% Patch TD SCH (09:39)
--- NOTE | 2018-03-21 10:20 | CP.PCM.PN ---
<GailJoymichelle L - Last Filed: 03/21/18 16:14> Subjective - Date & Time of Evaluation Date of Evaluation: 03/21/18 Time of Evaluation: 09:00 - Subjective Subjective: Resident Progress Note for Hospitalist Service Patient examined at bedside. No acute events overnight. Patient states her shortness of breath is improved. Still admits to intermittent back pain. Denies fevers, chills, headache, dizziness, chest pain, abdominal pain, diarrhea, dysuria. Objective - Vital Signs/Intake and Output Vital Signs (last 24 hours): Temp Pulse Resp BP Pulse Ox 98.4 F 81 18 138/62 95 03/21/18 06:00 03/21/18 09:35 03/21/18 06:00 03/21/18 09:36 03/21/18 06:00 Intake and Output: 03/21/18 03/21/18 06:59 18:59 Intake Total 2700 Balance 2700 - Medications Medications: Current Medications Acetaminophen (Tylenol 325mg Tab) 650 mg PO Q6H PRN PRN Reason: Fever >100.4 F Albuterol/Ipratropium (Duoneb 3 Mg/0.5 Mg (3 Ml) Ud) 3 ml IH [id number] PRN PRN Reason: Shortness of Breath Amlodipine Besylate (Norvasc) 5 mg PO DAILY [facility] Last Admin: 03/21/18 09:35 Dose: 5 mg Arformoterol Tartrate (Brovana) 15 mcg IH [id number] [facility] Last Admin: 03/21/18 07:43 Dose: 15 mcg Aspirin (Ecotrin) 325 mg PO DAILY [facility] Last Admin: 03/21/18 09:36 Dose: 325 mg Atorvastatin Calcium (Lipitor) 40 mg PO DAILY [facility] Last Admin: 03/21/18 09:36 Dose: 40 mg Budesonide (Pulmicort Respules) 0.25 mg IH [id number] [facility] Last Admin: 03/21/18 07:43 Dose: 0.25 mg Carvedilol (Coreg) 6.25 mg PO BID [facility] Last Admin: 03/21/18 09:34 Dose: 6.25 mg Ezetimibe (Zetia) 10 mg PO DAILY [facility] Last Admin: 03/21/18 09:36 Dose: 10 mg Enoxaparin Sodium (Lovenox) 40 mg SC DAILY [facility]; Protocol Last Admin: 03/21/18 09:34 Dose: 40 mg Furosemide (Lasix) 20 mg IVP Q12 [facility] Last Admin: 03/21/18 09:36 Dose: 20 mg Ceftriaxone Sodium (Rocephin 1 Gram Ivpb) 1 gm in 100 mls @ 100 mls/hr IVPB DAILY [facility]; Protocol Last Admin: 03/21/18 09:37 Dose: 100 mls/hr Azithromycin (Zithromax 500mg In Ns) 500 mg in 250 mls @ 167 mls/hr IVPB DAILY [facility]; Protocol Last Admin: 03/21/18 09:37 Dose: 167 mls/hr Isosorbide Mononitrate (Imdur Er) 30 mg PO DAILY [facility] Last Admin: 03/21/18 09:36 Dose: 30 mg Lidocaine (Lidoderm) 1 ea TD DAILY [facility] Last Admin: 03/21/18 09:39 Dose: 1 ea Methylprednisolone (Solu-Medrol) 20 mg IVP Q12H [facility] Last Admin: 03/20/18 21:12 Dose: 20 mg Oxycodone/Acetaminophen (Percocet 5/325 Mg Tab) 1 tab PO Q6H PRN PRN Reason: Pain, severe (8-10) Stop: 03/22/18 21:17 Last Admin: 03/21/18 09:33 Dose: 1 tab Pantoprazole Sodium (Protonix Inj) 40 mg IVP DAILY [facility] Last Admin: 03/20/18 09:31 Dose: 40 mg Pantoprazole Sodium (Protonix Ec Tab) 40 mg PO 0600 [facility] Last Admin: 03/21/18 05:46 Dose: 40 mg Valsartan (Diovan) 320 mg PO DAILY [facility] Last Admin: 03/21/18 09:36 Dose: 320 mg - Labs Labs: 03/21/18 06:00 03/21/18 06:00 - Additional Findings Additional findings: - Constitutional Appears: Well, Non-toxic, No Acute Distress - Head Exam Head Exam: ATRAUMATIC, NORMOCEPHALIC - Eye Exam Eye Exam: EOMI, Normal appearance. absent: Scleral icterus - ENT Exam ENT Exam: Mucous Membranes Moist, Normal Oropharynx - Respiratory Exam Respiratory Exam: Decreased Breath Sounds (right mid lung field posteriorly), NORMAL BREATHING PATTERN. absent: Rales, Rhonchi, Wheezes - Cardiovascular Exam Cardiovascular Exam: RRR, +S1, +S2. absent: Clicks, Murmur - GI/Abdominal Exam GI & Abdominal Exam: Soft, Normal Bowel Sounds - Extremities Exam Extremities Exam: Normal Inspection. absent: Calf Tenderness, Pedal Edema - Back Exam Back Exam: NORMAL INSPECTION. absent: CVA tenderness (L), CVA tenderness (R) - Neurological Exam Neurological Exam: Alert, Awake, Oriented x3 - Psychiatric Exam Psychiatric exam: Normal Affect, Normal Mood - Skin Skin Exam: Dry, Intact, Normal Color, Warm Assessment and Plan - Assessment and Plan (Free Text) Assessment: 77 y/o female with PMH of HTN, CAD (s/p PCI with 2 stents palced), left breast CA (s/p lumpectomy and RT) emphysema, chronic lower pain presents to the ED 5 days h/o SOB at rest and on exertion. . She was found to have leukocytosis, CT chest shows RML consolidation Plan: Community acquired pneumonia -CXR: right lung consolidations, pul venous congestion -CTA chest: shows RML consolidation with no evidence of Pulmonary embolism -leukocytosis trending down, afebrile -continue rocephin and azithromycin, -solu-medrol 20 mg q12h -duoneb q4h PRN -supp O2 prn -influenza swab negative, procalcitonin low -blood and urine cultures negative CAD -EKG: sinus tachy @108. LAD, no ST/T wave abnormalities -continue home meds norvasc, valsartan, imdur -continue plavix, asa -RUFINO (02/14): EF 55-60%, LVH, , MVP, MR, TR, [place] -cardiology consulted Dr Austin HLD: -continue home meds lipitor, zetia chronic lower back pain: -disc herination with b/l radiaculopathy, more to the right below knee level -percocet prn for pain h/o left breast CA s/p lumpectomy/radiation: -not on active therapy h/o emphysema: -continue home meds ventolin Right chest wall pain likely secondary to pleurisy from RML consolidation - Lidoderm patch daily Prophylaxis: -GI ppx: protonix -DVT ppx: SCD, lovenox Case reviewed and plan discussed with attending Dr. Day <Paxton Day A - Last Filed: 03/21/18 17:15> Objective - Vital Signs/Intake and Output Vital Signs (last 24 hours): Temp Pulse Resp BP Pulse Ox 97.8 F 88 20 118/63 95 03/21/18 12:00 03/21/18 14:00 03/21/18 12:00 03/21/18 12:00 03/21/18 06:00 Intake and Output: 03/21/18 03/21/18 06:59 18:59 Intake Total 2700 Balance 2700 - Medications Medications: Current Medications Acetaminophen (Tylenol 325mg Tab) 650 mg PO Q6H PRN PRN Reason: Fever >100.4 F Last Admin: 03/21/18 12:25 Dose: 650 mg Albuterol/Ipratropium (Duoneb 3 Mg/0.5 Mg (3 Ml) Ud) 3 ml IH [id number] PRN PRN Reason: Shortness of Breath Amlodipine Besylate (Norvasc) 5 mg PO DAILY [facility] Last Admin: 03/21/18 09:35 Dose: 5 mg Arformoterol Tartrate (Brovana) 15 mcg IH [id number] [facility] Last Admin: 03/21/18 07:43 Dose: 15 mcg Aspirin (Ecotrin) 325 mg PO DAILY [facility] Last Admin: 03/21/18 09:36 Dose: 325 mg Atorvastatin Calcium (Lipitor) 40 mg PO DAILY [facility] Last Admin: 03/21/18 09:36 Dose: 40 mg Budesonide (Pulmicort Respules) 0.25 mg IH [id number] [facility] Last Admin: 03/21/18 07:43 Dose: 0.25 mg Carvedilol (Coreg) 6.25 mg PO BID [facility] Last Admin: 03/21/18 09:34 Dose: 6.25 mg Ezetimibe (Zetia) 10 mg PO DAILY [facility] Last Admin: 03/21/18 09:36 Dose: 10 mg Enoxaparin Sodium (Lovenox) 40 mg SC DAILY [facility]; Protocol Last Admin: 03/21/18 09:34 Dose: 40 mg Furosemide (Lasix) 20 mg IVP Q12 [facility] Last Admin: 03/21/18 09:36 Dose: 20 mg Ceftriaxone Sodium (Rocephin 1 Gram Ivpb) 1 gm in 100 mls @ 100 mls/hr IVPB DAILY [facility]; Protocol Last Admin: 03/21/18 09:37 Dose: 100 mls/hr Azithromycin (Zithromax 500mg In Ns) 500 mg in 250 mls @ 167 mls/hr IVPB DAILY [facility]; Protocol Last Admin: 03/21/18 09:37 Dose: 167 mls/hr Isosorbide Mononitrate (Imdur Er) 30 mg PO DAILY [facility] Last Admin: 03/21/18 09:36 Dose: 30 mg Lidocaine (Lidoderm) 1 ea TD DAILY [facility] Last Admin: 03/21/18 09:39 Dose: 1 ea Methylprednisolone (Solu-Medrol) 20 mg IVP Q12H [facility] Last Admin: 03/21/18 12:26 Dose: 20 mg Oxycodone/Acetaminophen (Percocet 5/325 Mg Tab) 1 tab PO Q6H PRN PRN Reason: Pain, severe (8-10) Stop: 03/22/18 21:17 Last Admin: 03/21/18 09:33 Dose: 1 tab Pantoprazole Sodium (Protonix Inj) 40 mg IVP DAILY [facility] Last Admin: 03/20/18 09:31 Dose: 40 mg Pantoprazole Sodium (Protonix Ec Tab) 40 mg PO 0600 [facility] Last Admin: 03/21/18 05:46 Dose: 40 mg Valsartan (Diovan) 320 mg PO DAILY [facility] Last Admin: 03/21/18 09:36 Dose: 320 mg - Labs Labs: 03/21/18 06:00 03/21/18 06:00 Attending/Attestation - Attestation I have personally seen and examined this patient.: Yes I have fully participated in the care of the patient.: Yes I have reviewed all pertinent clinical information, including history, physical exam and plan: Yes Notes (Text): 03/21/18 17:13 77 year old female with past medical history of CAD s/p stents, hypertension, left breast cancer s/p lumpectomy and radiation, emphysema and chronic back pain who presented with cough and shortness of breath. She was found to have RML consolidation on CT chest. Continue with iv antibiotics, iv steroids and duonebs. Symptoms are slowly improving. OOB to chair. She is on iv lasix as well. Cardiology is following. Paxton Day MD Hospitalist
[2018-03-21] MEDS: MethylPREDNISolone 40 mg Vial IVP SCH ×2 (12:26→21:33)
[2018-03-21] MEDS: Albuterol-Ipratrop 3 mg / 0.5 (3 ml) UD IH PRN (17:38)
--- NOTE | 2018-03-21 19:38 | PN ---
DATE: 03/21/2018 SUBJECTIVE: The patient is still experiencing cough, but with thick tenacious sputum related to ____ expectorate. She is experiencing sharp right chest pain as well as right shoulder pain. PHYSICAL EXAMINATION: VITAL SIGNS: Blood pressure 118/63, heart rate 80, temperature 97.8, respirations 20. HEENT: Normocephalic. CHEST: Right-sided rhonchi. HEART: S1, S2 regular. EXTREMITIES: No edema. LABORATORY DATA: Hemoglobin and hematocrit 10.9 and 34.6, white count 21.9, platelet count 255,000. Today's SMA-7 is within normal limits except for glucose 133, and BUN of 39. ASSESSMENT: 1. Right upper lobe pneumonia. 2. Severe mitral insufficiency. 3. Chronic obstructive lung disease. 4. Moderate valvular aortic stenosis. RECOMMENDATIONS: Continue Coreg 6.25 mg once a day, Diovan 320 mg once a day, aspirin 325 mg once daily, Lasix 20 mg intravenously twice a day, Imdur 30 mg once a day, Lipitor at 20 mg once a day, Lovenox at 40 mg subcutaneous once a day, Solu-Medrol 20 mg intravenously every 12 hours, Rocephin at 1 g intravenously daily, and Zithromax at 500 mg intravenously daily. Mathew Peck MD
[2018-03-21] MEDS: guaiFENesin 200 mg/10 ml Syrup UD PO PRN ×2 (20:05→23:50)
[2018-03-22] MEDS: Albuterol-Ipratrop 3 mg / 0.5 (3 ml) UD IH PRN (02:05)
[2018-03-22] MEDS: Oxycodone/Acetaminophen 5/325 mg Tab PO PRN ×2 (03:21→11:10)
[2018-03-22] MEDS: guaiFENesin 200 mg/10 ml Syrup UD PO PRN (03:21)
[2018-03-22 03:27] VITALS: RESP 20
[2018-03-22] MEDS: Pantoprazole 40 mg EC Tab PO SCH (06:52)
[2018-03-22 07:16] VITALS: TEMP 97.5; O2SAT 93
[2018-03-22 07:39] LABS: BASO # 0.01 K/mm3 (0.0-2.0); GRAN # 18.9 (1.4-6.5); GRAN % 92.4 % (50.0-68.0); HEMOGLOBIN 11.1 g/dL (12.0-16.0); LYMPH # 0.8 (1.2-3.4); MEAN CELL VOLUME 92.7 fl (80.0-105.0); MEAN CORPUSCULAR HEMOGLOBIN 28.8 pg (25.0-35.0); MEAN CORPUSCULAR HGB CONC 31.1 g/dl (31.0-37.0); MEAN PLATELET VOLUME 11.9 fl (7.0-11.0); MONO # 0.7 (0.1-0.6); MONO % 3.6 % (1.0-6.0); RBC 3.85 10^6/uL (3.5-6.1); RED CELL DISTRIBUTION WIDTH 14.1 % (11.5-14.5); WHITE BLOOD COUNT 20.5 10^3/uL (4.5-11.0)
[2018-03-22 07:54] LABS: ALBUMIN 3.8 g/dL (3.0-4.8); ALT/SGPT 51 U/L (7-56); AST/SGOT 56 U/L (14-36); BLOOD UREA NITROGEN 42 mg/dL (7-21); CALCIUM 8.6 mg/dL (8.4-10.5); GFR NON-AFRICAN AMERICAN 54
[2018-03-22] MEDS: Budesonide 0.25 mg/2 ml Inhal Susp UD IH SCH (08:13)
[2018-03-22] MEDS: Arformoterol 15 mcg/2 ml Inh Sol IH SCH (08:13)
--- NOTE | 2018-03-22 08:23 | CP.PCM.PN ---
Subjective - Date & Time of Evaluation Date of Evaluation: 03/22/18 Time of Evaluation: 06:50 - Subjective Subjective: Awake, alert, no distress Reason for consultation and follow up:Cardiac evaluation of shortness of breath, history of COPD Seen and examined by me and Dr. Austin Objective - Vital Signs/Intake and Output Vital Signs (last 24 hours): Temp Pulse Resp BP Pulse Ox 97.5 F L 71 20 127/63 93 L 03/22/18 06:00 03/22/18 06:00 03/22/18 06:00 03/22/18 06:00 03/22/18 06:00 Intake and Output: 03/22/18 03/22/18 06:59 18:59 Intake Total 780 Balance 780 - Medications Medications: Current Medications Acetaminophen (Tylenol 325mg Tab) 650 mg PO Q6H PRN PRN Reason: Fever >100.4 F Last Admin: 03/21/18 12:25 Dose: 650 mg Albuterol/Ipratropium (Duoneb 3 Mg/0.5 Mg (3 Ml) Ud) 3 ml IH [id number] PRN PRN Reason: Shortness of Breath Last Admin: 03/22/18 02:05 Dose: 3 ml Amlodipine Besylate (Norvasc) 5 mg PO DAILY [facility] Last Admin: 03/21/18 09:35 Dose: 5 mg Arformoterol Tartrate (Brovana) 15 mcg IH [id number] [facility] Last Admin: 03/22/18 08:13 Dose: 15 mcg Aspirin (Ecotrin) 325 mg PO DAILY [facility] Last Admin: 03/21/18 09:36 Dose: 325 mg Atorvastatin Calcium (Lipitor) 40 mg PO DAILY [facility] Last Admin: 03/21/18 09:36 Dose: 40 mg Budesonide (Pulmicort Respules) 0.25 mg IH [id number] [facility] Last Admin: 03/22/18 08:13 Dose: 0.25 mg Carvedilol (Coreg) 6.25 mg PO BID [facility] Last Admin: 03/21/18 17:32 Dose: 6.25 mg Ezetimibe (Zetia) 10 mg PO DAILY [facility] Last Admin: 03/21/18 09:36 Dose: 10 mg Enoxaparin Sodium (Lovenox) 40 mg SC DAILY [facility]; Protocol Last Admin: 03/21/18 09:34 Dose: 40 mg Furosemide (Lasix) 20 mg PO Q12H [facility] Last Admin: 03/21/18 21:32 Dose: 20 mg Guaifenesin (Robitussin) 200 mg PO Q4H PRN PRN Reason: Cough and congestion Last Admin: 03/22/18 03:21 Dose: 200 mg Ceftriaxone Sodium (Rocephin 1 Gram Ivpb) 1 gm in 100 mls @ 100 mls/hr IVPB DAILY [facility]; Protocol Last Admin: 03/21/18 09:37 Dose: 100 mls/hr Azithromycin (Zithromax 500mg In Ns) 500 mg in 250 mls @ 167 mls/hr IVPB DAILY [facility]; Protocol Last Admin: 03/21/18 09:37 Dose: 167 mls/hr Isosorbide Mononitrate (Imdur Er) 30 mg PO DAILY [facility] Last Admin: 03/21/18 09:36 Dose: 30 mg Lidocaine (Lidoderm) 1 ea TD DAILY [facility] Last Admin: 03/21/18 09:39 Dose: 1 ea Methylprednisolone (Solu-Medrol) 20 mg IVP Q12H [facility] Last Admin: 03/21/18 21:33 Dose: 20 mg Oxycodone/Acetaminophen (Percocet 5/325 Mg Tab) 1 tab PO Q6H PRN PRN Reason: Pain, severe (8-10) Stop: 03/22/18 21:17 Last Admin: 03/22/18 03:21 Dose: 1 tab Pantoprazole Sodium (Protonix Ec Tab) 40 mg PO 0600 [facility] Last Admin: 03/22/18 06:52 Dose: 40 mg Valsartan (Diovan) 320 mg PO DAILY [facility] Last Admin: 03/21/18 09:36 Dose: 320 mg - Labs Labs: 03/22/18 07:10 03/22/18 07:10 - Constitutional Appears: Non-toxic, No Acute Distress - Head Exam Head Exam: NORMAL INSPECTION, NORMOCEPHALIC - Eye Exam Eye Exam: Normal appearance Pupil Exam: NORMAL ACCOMODATION - ENT Exam ENT Exam: Mucous Membranes Moist, Normal Exam - Respiratory Exam Respiratory Exam: Decreased Breath Sounds, NORMAL BREATHING PATTERN - Cardiovascular Exam Cardiovascular Exam: REGULAR RHYTHM, +S1, +S2 - GI/Abdominal Exam GI & Abdominal Exam: Soft, Normal Bowel Sounds - Extremities Exam Extremities Exam: Full ROM, Normal Capillary Refill - Neurological Exam Neurological Exam: Alert, Awake, Oriented x3 - Psychiatric Exam Psychiatric exam: Normal Affect, Normal Mood - Skin Skin Exam: Dry, Normal Color, Warm Assessment and Plan - Assessment and Plan (Free Text) Assessment: A 77 year old female who came in to the ER due to shortness of breath at rest and exertion. History of COPD, former smoker,hypertension, coronary artery disease with stents, left breast cancer, Left lumpectomy with radiation, cholecystectomy,emphysema, chronic lower pain ,asthma,pneumonia, bronchitis. 06/24/17 she had Stress test and showed abnormal result with fixed anteroseptal apical defect suggestive of myocardial injury. 02/04/18- RUFINO was done and showed moderate valvular aortic stenosis and severe mitral insufficency. recent CT of chest showed right upper lobe infiltrate/pneumonia. On IV antibiotics. Plan: Denies shortness of breath No distress On IV antibiotics for pneumonia On ASA 81 mg daily,Lipitor 40 mg daily,Coreg 6.125 mg BID Lovenox 40 mg daily, Lasix 20 mg BID, Imdur 30 mg daily, Solumedrol 20 mg BID Diovan 320 mg daily Cardiac status stable Heart rate controlled Blood pressure controlled Continue current treatment Will follow up Plan and treatment discussed with Dr. Austin
[2018-03-22] MEDS ORDERED: guaiFENesin DM 100 mg-10 mg/5 ml UD PO PRN (10:50)
[2018-03-22] MEDS: Aspirin 325 mg EC Tablets PO SCH (11:09)
[2018-03-22] MEDS: Enoxaparin 40 mg Syringe SC SCH (11:10)
[2018-03-22 11:15] VITALS: BP 130/63
[2018-03-22] MEDS: cefTRIAXone 1 gm 1 GM/100 ML BAG IVPB SCH (11:15)
[2018-03-22] MEDS: Lidocaine 5% Patch TD SCH (11:16)
[2018-03-22] MEDS: MethylPREDNISolone 40 mg Vial IVP SCH (12:16)
--- NOTE | 2018-03-22 13:36 | RAD ---
Date of service: 03/22/2018 HISTORY: evaluate congestion COMPARISON: 03/19/2018 TECHNIQUE: Chest PA and lateral FINDINGS: LUNGS: There is an alveolar infiltrate in the right upper lobe unchanged PLEURA: Small right pleural effusion CARDIOVASCULAR: Aortic calcification Normal cardiac size. No pulmonary vascular congestion. OSSEOUS STRUCTURES: No significant abnormalities. VISUALIZED UPPER ABDOMEN: Normal. OTHER FINDINGS: None. IMPRESSION: No change in right upper lobe infiltrate
[2018-03-22 14:12] VITALS: PULSE 80
[2018-03-22] MEDS: Azithromycin 500MG/NS 250ml 500 MG/250 ML BAG IVPB SCH (14:32)
--- NOTE | 2018-03-22 16:53 | PN ---
DATE: 03/22/2018 REASON FOR CONSULTATION AND FOLLOWUP: Cardiac evaluation, shortness of breath, history of COPD, history of coronary artery disease status post a stent, history of mitral regurgitation, admitted with right upper lobe pneumonia new. This note is in addition to dictated by our nurse practitioner, Sharyn Higgins. SUBJECTIVE: The patient feels better. Denies any cough. Went for the chest x-ray. Chest x-ray compare localizing right upper lobe pneumonia. Currently the patient is on Zithromax, steroids, Coreg and Lasix. RECOMMENDATIONS: Continue antibiotic. Recent stress test dated 06/16/2017 fixed defect non-reversible ischemia. The patient on had a ____ 02/04/2018 which shows moderate valvular aortic stenosis, severe mitral regurgitation. Recent CT chest shows right upper lobe infiltrate. Recommended antibody and continue Coreg, continue gentle diuretics. Continue Lipitor. Upon discharge, the patient will be followed up with me and possible set up for mitral valve repair and since the patient has pneumonia now, symptoms cannot be assessed because of the underlying pneumonia. Once the patient completely resolved pneumonia the in two to three weeks, we will reassess for possible consideration of valve repair for symptomatology for mitral regurgitation as indication. I will discuss with Dr. Day and the resident taking care of the patient Carmen Kumari. Anuel Austin MD
[2018-03-22] MEDS ORDERED: Pneumococcal 23-Valent Vaccine IM ONE (17:11)
--- NOTE | 2018-03-22 19:32 | CP.PCM.DIS ---
<Dallas Hernández - Last Filed: 03/23/18 10:41> Provider - Provider Date of Admission: 03/19/18 20:01 Attending physician: Paxton Day MD Consults: 03/19/18 21:18 Physician Consult Routine Comment: Consulting Provider: Anuel Austin Consulting Physician: Anuel Austin Reason for Consult: h/o CAD, valvular heart disease Time Spent in preparation of Discharge (in minutes): 35 Hospital Course - Lab Results Lab Results: Micro Results 03/19/18 21:00 Blood-Venous Blood Culture - Preliminary NO GROWTH AFTER 48 HOURS 03/19/18 19:55 Blood-Venous Blood Culture - Preliminary NO GROWTH AFTER 48 HOURS 03/19/18 21:00 Urine,Clean Catch Urine Culture - Final No Growth (<1,000 CFU/ML) Most Recent Lab Values WBC 20.5 10^3/uL (4.5-11.0) H 03/22/18 07:10 RBC 3.85 10^6/uL (3.5-6.1) 03/22/18 07:10 Hgb 11.1 g/dL (12.0-16.0) L 03/22/18 07:10 Hct 35.7 % (36.0-48.0) L 03/22/18 07:10 MCV 92.7 fl (80.0-105.0) 03/22/18 07:10 MCH 28.8 pg (25.0-35.0) 03/22/18 07:10 MCHC 31.1 g/dl (31.0-37.0) 03/22/18 07:10 RDW 14.1 % (11.5-14.5) 03/22/18 07:10 Plt Count 253 10^3/uL (120.0-450.0) 03/22/18 07:10 MPV 11.9 fl (7.0-11.0) H 03/22/18 07:10 Gran % 92.4 % (50.0-68.0) H 03/22/18 07:10 Lymph % (Auto) 4.0 % (22.0-35.0) L 03/22/18 07:10 [place] % (Auto) 3.6 % (1.0-6.0) 03/22/18 07:10 Eos % (Auto) 0.0 % (1.5-5.0) L 03/22/18 07:10 Baso % (Auto) 0.0 % (0.0-3.0) 03/22/18 07:10 Gran # 18.90 (1.4-6.5) H 03/22/18 07:10 Lymph # (Auto) 0.8 (1.2-3.4) L 03/22/18 07:10 [place] # (Auto) 0.7 (0.1-0.6) H 03/22/18 07:10 Eos # (Auto) 0.0 (0.0-0.7) 03/22/18 07:10 Baso # (Auto) 0.01 K/mm3 (0.0-2.0) 03/22/18 07:10 Neutrophils % (Manual) 82 % (50.0-70.0) H 03/20/18 07:00 Band Neutrophils % 8 % (0-2) H 03/20/18 07:00 Lymphocytes % (Manual) 3 % (22.0-35.0) L 03/20/18 07:00 Monocytes % (Manual) 5 % (1.0-6.0) 03/20/18 07:00 Metamyelocytes % 2 % 03/20/18 07:00 D-Dimer, Quantitative 397 ng/mlDDU (0-243) H 03/19/18 18:00 pO2 70 mm/Hg (30-55) H 03/19/18 19:55 VBG pH 7.44 (7.32-7.43) H 03/19/18 19:55 VBG pCO2 31.0 (40-60) L 03/19/18 19:55 VBG HCO3 21.1 mmol/l (21-28) 03/19/18 19:55 VBG Total CO2 22.1 mmol.L (22-28) 03/19/18 19:55 VBG O2 Sat (Calc) 96.4 % (40-65) H 03/19/18 19:55 VBG Base Excess -2.1 mmol/L (0.0-2.0) L 03/19/18 19:55 VBG Potassium 3.9 mmol/L (3.6-5.2) 03/19/18 19:55 Sodium 134.0 mmol/L (132-148) 03/19/18 19:55 Chloride 102.0 mmol/L (98-107) 03/19/18 19:55 Glucose 103 mg/dl (65-105) 03/19/18 19:55 Lactate 1.2 mmol/L (0.7-2.1) 03/19/18 19:55 FiO2 21.0 % 03/19/18 19:55 Sodium 137 mmol/L (132-148) 03/22/18 07:10 Potassium 4.7 mmol/L (3.6-5.0) 03/22/18 07:10 Chloride 107 mmol/L (98-107) 03/22/18 07:10 Carbon Dioxide 25 mmol/L (21-33) 03/22/18 07:10 Anion Gap 10 (10-20) 03/22/18 07:10 BUN 42 mg/dL (7-21) H 03/22/18 07:10 Creatinine 1.0 mg/dl (0.7-1.2) 03/22/18 07:10 Est GFR ( Amer) > 60 03/22/18 07:10 Est GFR (Non-Af Amer) 54 03/22/18 07:10 Random Glucose 128 mg/dL (70-110) H 03/22/18 07:10 Hemoglobin A1c 5.7 % (4.2-6.5) 03/19/18 21:58 Calcium 8.6 mg/dL (8.4-10.5) 03/22/18 07:10 Phosphorus 4.0 mg/dL (2.5-4.5) 03/20/18 07:00 Magnesium 2.0 mg/dL (1.7-2.2) 03/20/18 07:00 Total Bilirubin 0.3 mg/dL (0.2-1.3) 03/22/18 07:10 AST 56 U/L (14-36) H D 03/22/18 07:10 ALT 51 U/L (7-56) 03/22/18 07:10 Alkaline Phosphatase 128 U/L (38-126) H 03/22/18 07:10 Troponin I < 0.01 ng/mL 03/20/18 03:00 NT-Pro-B Natriuret Pep 1430 pg/mL (0-450) H 03/19/18 18:00 Total Protein 7.6 g/dL (5.8-8.3) 03/22/18 07:10 Albumin 3.8 g/dL (3.0-4.8) 03/22/18 07:10 Globulin 3.8 gm/dL 03/22/18 07:10 Albumin/Globulin Ratio 1.0 (1.1-1.8) L 03/22/18 07:10 Triglycerides 55 mg/dL (35-160) 03/19/18 21:58 Cholesterol 130 mg/dL (130-200) 03/19/18 21:58 LDL Cholesterol Direct 69 mg/dL (0-129) 03/19/18 21:58 HDL Cholesterol 46 mg/dL (29-60) 03/19/18 21:58 Lipase 106 U/L (23-300) 03/19/18 18:00 Procalcitonin 0.06 NG/ML (0.19-0.49) L 03/19/18 21:25 Venous Blood Potassium 3.9 mmol/L (3.6-5.2) 03/19/18 19:55 Urine Color Light yellow (YELLOW) 03/19/18 21:00 Urine Appearance Clear (CLEAR) 03/19/18 21:00 Urine pH 6.0 (4.7-8.0) 03/19/18 21:00 Ur Specific [place] 1.010 (1.005-1.035) 03/19/18 21:00 Urine Protein Negative mg/dL (<30 mg/dL) 03/19/18 21:00 Urine Glucose (UA) Negative mg/dL (NEGATIVE) 03/19/18 21:00 Urine Ketones Negative mg/dL (NEGATIVE) 03/19/18 21:00 Urine Blood Negative (NEGATIVE) 03/19/18 21:00 Urine Nitrate Negative (NEGATIVE) 03/19/18 21:00 Urine Bilirubin Negative (NEGATIVE) 03/19/18 21:00 Urine Urobilinogen 0.2 E.U./dL (<1 E.U./dL) 03/19/18 21:00 Ur Leukocyte Esterase Small [place]/uL (NEGATIVE) H 03/19/18 21:00 Urine RBC Negative /hpf (0-2) 03/19/18 21:00 Urine WBC 1 - 3 /hpf (0-6) 03/19/18 21:00 Ur Epithelial Cells 1 - 3 /hpf (0-5) 03/19/18 21:00 Urine Bacteria Neg /hpf (NONE) 03/19/18 21:00 Urine Other Utrans /hpf 03/19/18 21:00 Influenza Typ A,B (EIA) Negative for flu a/b (NEGATIVE) 03/19/18 21:00 - Hospital Course Hospital Course: Upon hospital admission, 77 year old female with PMH of HTN, CAD (s/p PCI with 2 stents palced), left breast CA (s/p lumpectomy and RT) emphysema, chronic lower pain presented to the ED 5 for days h/o SOB at rest and on exersion, fever, chills, chest congestion and dry cough. Her symptoms were getting worse even with the use of her inhalers. She also had complaints of lower back pain which is chronic and takes 6 tablets of ASA 325 mg daily. Her pain is worse today specially on the left side with right side with radiculopathy and is sharp in nature, radiates to below the knee level. Patient received steroid injections in the past with no relieve of her pain. During hospital course, trops noted to be negative x3, EKG showed sinus tachycardia at [address] changes, CXR showed right lung consolidations, CT chest showed RML consolidation. Patient initially noted to have fever of 100.4 with WBC of 15.2. She was started on rocephin, zithromax, solumedrol, duonebs, supp O2 and her home BP meds were continued. Blood culture was negative x3 days. Procalc was unremarkable and influenza swab was negative. She was given percocet for her chronic back pain and lidoderm patch for chest wall MSK pain. Her symptoms improved during hospital course and she agreed with discharge and follow up with her primary care doctor. Discharge Exam - Additional Findings Additional findings: - Constitutional Appears: Well, Non-toxic, No Acute Distress - Head Exam Head Exam: ATRAUMATIC, NORMOCEPHALIC - Eye Exam Eye Exam: EOMI, Normal appearance. absent: Scleral icterus - ENT Exam ENT Exam: Mucous Membranes Moist, Normal Oropharynx - Respiratory Exam Respiratory Exam: minimal expiratory wheezing appreciated in right lung base, NORMAL BREATHING PATTERN. absent: Rales, Rhonchi - Cardiovascular Exam Cardiovascular Exam: RRR, +S1, +S2. absent: Clicks, Murmur - GI/Abdominal Exam GI & Abdominal Exam: Soft, Normal Bowel Sounds - Extremities Exam Extremities Exam: Normal Inspection. absent: Calf Tenderness, Pedal Edema - Back Exam Back Exam: NORMAL INSPECTION. absent: CVA tenderness (L), CVA tenderness (R) - Neurological Exam Neurological Exam: Alert, Awake, Oriented x3 - Skin Skin Exam: Dry, Intact, Normal Color, Warm Discharge Plan - Discharge Medications Prescriptions: Amoxicillin/Clavulanate [Augmentin 875 MG-125 MG] 1 tab PO DAILY 4 Days #4 tab Azithromycin [Zithromax] 500 mg PO DAILY 4 Days #4 tablet Furosemide [Lasix] 40 mg PO DAILY 30 Days #30 tab guaiFENesin/Dextromethorphan [Robitussin DM] 5 ml PO Q4H PRN #1 udc PRN Reason: Cough Lidocaine 5% [Lidoderm] 1 ea TD DAILY #10 patch Methylprednisolone [Medrol Dose Pack (21 tabs)] See Taper PO DAILY #21 mg - Follow Up Plan Condition: GOOD Disposition: HOME/ ROUTINE Instructions: Pneumonia, Adult (DC), Exacerbation of COPD (DC) Additional Instructions: Please see your primary care doctor within 5 to 7 days of discharge. Please follow up with your makeup sales advisor, Dr. Austin within 5-7 days of discharge. You have been started on a new water pill called lasix, please take daily. Please take 4 day course of antibiotics of augmentin and zithromax once daily. Please take the medrol dose pack taper as indicated on the instructions. Please resume your home medications. Please return to the ED for any new or worsening symptoms. Referrals: Anuel Austin MD [Staff Provider] - <Paxton Day - Last Filed: 03/23/18 12:32> Provider - Provider Date of Admission: 03/19/18 20:01 Attending physician: Paxton Day MD Consults: 03/19/18 21:18 Physician Consult Routine Comment: Consulting Provider: Anuel Austin Consulting Physician: Anuel Austin Reason for Consult: h/o CAD, valvular heart disease Hospital Course - Lab Results Lab Results: Micro Results 03/19/18 21:00 Blood-Venous Blood Culture - Preliminary NO GROWTH AFTER 3 DAYS 03/19/18 19:55 Blood-Venous Blood Culture - Preliminary NO GROWTH AFTER 3 DAYS 03/19/18 21:00 Urine,Clean Catch Urine Culture - Final No Growth (<1,000 CFU/ML) Most Recent Lab Values WBC 20.5 10^3/uL (4.5-11.0) H 03/22/18 07:10 RBC 3.85 10^6/uL (3.5-6.1) 03/22/18 07:10 Hgb 11.1 g/dL (12.0-16.0) L 03/22/18 07:10 Hct 35.7 % (36.0-48.0) L 03/22/18 07:10 MCV 92.7 fl (80.0-105.0) 03/22/18 07:10 MCH 28.8 pg (25.0-35.0) 03/22/18 07:10 MCHC 31.1 g/dl (31.0-37.0) 03/22/18 07:10 RDW 14.1 % (11.5-14.5) 03/22/18 07:10 Plt Count 253 10^3/uL (120.0-450.0) 03/22/18 07:10 MPV 11.9 fl (7.0-11.0) H 03/22/18 07:10 Gran % 92.4 % (50.0-68.0) H 03/22/18 07:10 Lymph % (Auto) 4.0 % (22.0-35.0) L 03/22/18 07:10 [place] % (Auto) 3.6 % (1.0-6.0) 03/22/18 07:10 Eos % (Auto) 0.0 % (1.5-5.0) L 03/22/18 07:10 Baso % (Auto) 0.0 % (0.0-3.0) 03/22/18 07:10 Gran # 18.90 (1.4-6.5) H 03/22/18 07:10 Lymph # (Auto) 0.8 (1.2-3.4) L 03/22/18 07:10 [place] # (Auto) 0.7 (0.1-0.6) H 03/22/18 07:10 Eos # (Auto) 0.0 (0.0-0.7) 03/22/18 07:10 Baso # (Auto) 0.01 K/mm3 (0.0-2.0) 03/22/18 07:10 Neutrophils % (Manual) 82 % (50.0-70.0) H 03/20/18 07:00 Band Neutrophils % 8 % (0-2) H 03/20/18 07:00 Lymphocytes % (Manual) 3 % (22.0-35.0) L 03/20/18 07:00 Monocytes % (Manual) 5 % (1.0-6.0) 03/20/18 07:00 Metamyelocytes % 2 % 03/20/18 07:00 D-Dimer, Quantitative 397 ng/mlDDU (0-243) H 03/19/18 18:00 pO2 70 mm/Hg (30-55) H 03/19/18 19:55 VBG pH 7.44 (7.32-7.43) H 03/19/18 19:55 VBG pCO2 31.0 (40-60) L 03/19/18 19:55 VBG HCO3 21.1 mmol/l (21-28) 03/19/18 19:55 VBG Total CO2 22.1 mmol.L (22-28) 03/19/18 19:55 VBG O2 Sat (Calc) 96.4 % (40-65) H 03/19/18 19:55 VBG Base Excess -2.1 mmol/L (0.0-2.0) L 03/19/18 19:55 VBG Potassium 3.9 mmol/L (3.6-5.2) 03/19/18 19:55 Sodium 134.0 mmol/L (132-148) 03/19/18 19:55 Chloride 102.0 mmol/L (98-107) 03/19/18 19:55 Glucose 103 mg/dl (65-105) 03/19/18 19:55 Lactate 1.2 mmol/L (0.7-2.1) 03/19/18 19:55 FiO2 21.0 % 03/19/18 19:55 Sodium 137 mmol/L (132-148) 03/22/18 07:10 Potassium 4.7 mmol/L (3.6-5.0) 03/22/18 07:10 Chloride 107 mmol/L (98-107) 03/22/18 07:10 Carbon Dioxide 25 mmol/L (21-33) 03/22/18 07:10 Anion Gap 10 (10-20) 03/22/18 07:10 BUN 42 mg/dL (7-21) H 03/22/18 07:10 Creatinine 1.0 mg/dl (0.7-1.2) 03/22/18 07:10 Est GFR ( Amer) > 60 03/22/18 07:10 Est GFR (Non-Af Amer) 54 03/22/18 07:10 Random Glucose 128 mg/dL (70-110) H 03/22/18 07:10 Hemoglobin A1c 5.7 % (4.2-6.5) 03/19/18 21:58 Calcium 8.6 mg/dL (8.4-10.5) 03/22/18 07:10 Phosphorus 4.0 mg/dL (2.5-4.5) 03/20/18 07:00 Magnesium 2.0 mg/dL (1.7-2.2) 03/20/18 07:00 Total Bilirubin 0.3 mg/dL (0.2-1.3) 03/22/18 07:10 AST 56 U/L (14-36) H D 03/22/18 07:10 ALT 51 U/L (7-56) 03/22/18 07:10 Alkaline Phosphatase 128 U/L (38-126) H 03/22/18 07:10 Troponin I < 0.01 ng/mL 03/20/18 03:00 NT-Pro-B Natriuret Pep 1430 pg/mL (0-450) H 03/19/18 18:00 Total Protein 7.6 g/dL (5.8-8.3) 03/22/18 07:10 Albumin 3.8 g/dL (3.0-4.8) 03/22/18 07:10 Globulin 3.8 gm/dL 03/22/18 07:10 Albumin/Globulin Ratio 1.0 (1.1-1.8) L 03/22/18 07:10 Triglycerides 55 mg/dL (35-160) 03/19/18 21:58 Cholesterol 130 mg/dL (130-200) 03/19/18 21:58 LDL Cholesterol Direct 69 mg/dL (0-129) 03/19/18 21:58 HDL Cholesterol 46 mg/dL (29-60) 03/19/18 21:58 Lipase 106 U/L (23-300) 03/19/18 18:00 Procalcitonin 0.06 NG/ML (0.19-0.49) L 03/19/18 21:25 Venous Blood Potassium 3.9 mmol/L (3.6-5.2) 03/19/18 19:55 Urine Color Light yellow (YELLOW) 03/19/18 21:00 Urine Appearance Clear (CLEAR) 03/19/18 21:00 Urine pH 6.0 (4.7-8.0) 03/19/18 21:00 Ur Specific [place] 1.010 (1.005-1.035) 03/19/18 21:00 Urine Protein Negative mg/dL (<30 mg/dL) 03/19/18 21:00 Urine Glucose (UA) Negative mg/dL (NEGATIVE) 03/19/18 21:00 Urine Ketones Negative mg/dL (NEGATIVE) 03/19/18 21:00 Urine Blood Negative (NEGATIVE) 03/19/18 21:00 Urine Nitrate Negative (NEGATIVE) 03/19/18 21:00 Urine Bilirubin Negative (NEGATIVE) 03/19/18 21:00 Urine Urobilinogen 0.2 E.U./dL (<1 E.U./dL) 03/19/18 21:00 Ur Leukocyte Esterase Small [place]/uL (NEGATIVE) H 03/19/18 21:00 Urine RBC Negative /hpf (0-2) 03/19/18 21:00 Urine WBC 1 - 3 /hpf (0-6) 03/19/18 21:00 Ur Epithelial Cells 1 - 3 /hpf (0-5) 03/19/18 21:00 Urine Bacteria Neg /hpf (NONE) 03/19/18 21:00 Urine Other Utrans /hpf 03/19/18 21:00 Influenza Typ A,B (EIA) Negative for flu a/b (NEGATIVE) 03/19/18 21:00 Attending/Attestation - Attestation I have personally seen and examined this patient.: Yes I have fully participated in the care of the patient.: Yes I have reviewed all pertinent clinical information, including history, physical exam and plan: Yes Notes (Text): 03/23/18 12:30 77 year old female with past medical history of CAD s/p stents, hypertension, left breast cancer s/p lumpectomy and radiation, emphysema and chronic back pain who presented with cough and shortness of breath. She was found to have RML consolidation on CT chest and started on iv antibiotics, iv steroids and duonebs. Symptoms slowly improved. Leukocytosis likely secondary to pneumonia in addition to steroids but improving. She was seen by cardiology as well. Overall her symptoms have been improving. She is discharged home on po steroids and antibiotics. Follow up with pmd and makeup sales advisor. Paxton Day MD Hospitalist
[2018-03-24 00:20] LABS: SOURCE SERUM
== END 2018-03-22 18:55 | disposition home or self-care (01) | DRG 194 ==
LOC: ED 17:37 → ERH 20:01 → 2RNO 21:46
PROVIDERS: ADMIT Hospitalist; ATTEND Internal Medicine
PROC: 3E0234Z Introduction of Serum, Toxoid and Vaccine into Muscle, Percutaneous Approach (ICD-10-PCS; principal; 2018-03-22)
DX: J18.1 Lobar pneumonia, unspecified organism (principal); J44.0 Chronic obstructive pulmonary disease with (acute) lower respiratory infection; I10 Essential (primary) hypertension; I08.0 Rheumatic disorders of both mitral and aortic valves; I25.10 Atherosclerotic heart disease of native coronary artery without angina pectoris; E78.5 Hyperlipidemia, unspecified; M54.10 Radiculopathy, site unspecified; Z87.891 Personal history of nicotine dependence; Z85.3 Personal history of malignant neoplasm of breast; Z95.5 Presence of coronary angioplasty implant and graft; Z79.02 Long term (current) use of antithrombotics/antiplatelets; Z79.82 Long term (current) use of aspirin; Z99.81 Dependence on supplemental oxygen; Z23 Encounter for immunization

== ENCOUNTER 2018-04-05 11:32 | Outpatient (CLI) | payer MEDICARE | END 2018-04-05 11:33 | disposition home or self-care (01) | LOC: RAD 11:32 ==